=== PATIENT | female | born 1940 | race Caucasian/White ===

== ENCOUNTER → 2017-03-08 | Outpatient (CLI) | payer MEDICARE ==
--- NOTE | 2017-03-08 10:50 | XR ---
EXAMINATION TYPE: XR chest 2V DATE OF EXAM: 03/08/2017 COMPARISON: 11/25/2015 HISTORY: Wheezing. History of prior pneumothorax TECHNIQUE: Frontal and lateral views of the chest are obtained. FINDINGS: Biapical pleural thickening is present, however no pneumothorax is appreciated. Reticular opacities predominating within the right midlung and lower lungs and may relate to chronic interstiti al disease. Tenting of the diaphragm is seen on the right from right basilar atelectasis. There is pu lmonary hyperinflation and tapering of the pulmonary vasculature compatible with underlying COPD. Add itionally on the lateral image there is flattening of the diaphragms. Cardia mediastinal silhouette i s elongated but within normal limits. Vascular prominence is seen centrally may relate to underlying pulmonary arterial hypertension given the finding of COPD. IMPRESSION: 1. No evidence of recurrent pneumothorax. 2. Chronic interstitial changes within the right midlung and lower lungs which may relate to intersti tial lung disease. 3. Right basilar atelectasis. 4. Hilar prominence may relate to underlying pulmonary arterial hypertension given the radiographic f indings of COPD.
== END | disposition home or self-care (01) ==
LOC: RADXRMAIN 10:19
PROVIDERS: ATTEND Family Medicine
DX: J98.11 Atelectasis (principal); J44.9 Chronic obstructive pulmonary disease, unspecified; J84.89 Other specified interstitial pulmonary diseases; I27.2 Other secondary pulmonary hypertension; Z87.09 Personal history of other diseases of the respiratory system
CPT/HCPCS: 71020

== ENCOUNTER → 2017-04-09 | Outpatient (CLI) | payer MEDICARE ==
--- NOTE | 2017-04-10 11:26 | BD ---
EXAMINATION TYPE: MG DEXA axial skeleton. DATE OF EXAM: 04/09/2017 COMPARISON: NONE CLINICAL HISTORY: Height: 64.2 IN Weight: 130 LBS FRAX RISK QUESTIONS: Alcohol (3 or more units per day): NO Family History (Parent hip fracture): NO Glucocorticoids (More than 3mos): NO (Ex: prednisone, prednisolone, methylprednisolone, dexamethasone, and hydrocortisone). History of Fracture in Adulthood: NO Secondary Osteoporosis: 1. Type 1 Diabetes: NO 2. Hyperthyroidism: NO 3. Menopause before 45: NO 4. Malnutrition: NO 5. Chronic liver disease: NO Rheumatoid Arthritis: NO Current Tobacco Use: NO RISK FACTORS HISTORY OF: Active: YES Postmenopausal woman: AGE 51 MEDICATIONS: Additional Medications: VIT D, B12,FLAXSEED OIL EXAM MEASUREMENTS: Bone mineral densitometry was performed using the [employer] System. Bone mineral density as measured about the Lumbar spine is: ----- L1-L4(G/cm2): 1.044 T Score Values are as follows: ----- L2: -1.2 ----- L3: -1.1 ----- L4: -1.3 ----- L1-L4: -1.1 Bone mineral density BASELINE Bone mineral density about the R hip (g/cm2): 0.658 Bone mineral density about the L hip (g/cm2): 0.724 T Score values are as follows: -----R Neck: -2.7 -----L Neck: -2.3 -----R Total: -2.5 -----L Total: -2.4 Bone mineral density BASELINE IMPRESSION: Osteoporosis (T Score less than -2.5) as noted by T Score values at the There is increased fracture risk and therapy is usually indicated based on age. Re-Screen 1-2 years. NOTE: T-SCORE=SD OF THE YOUNG ADULT MEAN.
--- NOTE | 2017-04-10 14:44 | MM ---
Reason for exam: screening (asymptomatic). History: Patient is postmenopausal. Physical Findings: A clinical breast exam by your physician is recommended on an annual basis and results should be correlated with mammographic findings. MG Screening Mammo w CAD Bilateral CC and MLO view(s) were taken. There are scattered fibroglandular densities. Finding #1: There is a typically benign 4 mm oval mass located 3 cm from the nipple in the upper outer quadrant, middle position of the right breast. Finding #2: There are typically benign round, coarse lorene-like, diffuse/scattered calcifications in both breasts. There is no discrete abnormality. ASSESSMENT: Benign, BI-RAD 2 RECOMMENDATION: Routine screening mammogram of both breasts in 1 year.
== END | disposition home or self-care (01) ==
LOC: RADMAMWWP 14:35
PROVIDERS: ATTEND Family Medicine
DX: Z12.31 Encounter for screening mammogram for malignant neoplasm of breast (principal); M81.0 Age-related osteoporosis without current pathological fracture; N95.1 Menopausal and female climacteric states
CPT/HCPCS: 77080; G0202

== ENCOUNTER 2019-10-07 18:26 | Observation (INO) | payer MEDICARE ==
[2019-10-07] MEDS ORDERED: SODIUM CHLORIDE 0.9% 500 ML 500 ML IV STA (18:55)
[2019-10-07 19:24] LABS: Basophils # (A) 0.1 k/uL (0-0.2); Basophils % (A) 1 %; Eosinophils # (A) 0.1 k/uL (0-0.7); Eosinophils % (A) 1 %; HCT 47.5 % (34.0-46.0); HGB 15.2 gm/dL (11.4-16.0); Lymphocytes # (A) 1.4 k/uL (1.0-4.8); Lymphocytes % (A) 22 %; MCH 29.2 pg (25.0-35.0); MCV 91.2 fL (80.0-100.0); Mean Platelet Volume 8.1; Monocytes # (A) 0.4 k/uL (0-1.0); Monocytes % (A) 6 %; Neutrophils # (A) 4.4 k/uL (1.3-7.7); Neutrophils % (A) 68 %; Platelet Count 247 k/uL (150-450); RBC 5.21 m/uL (3.80-5.40); RDW 12.1 % (11.5-15.5); WBC 6.4 k/uL (3.8-10.6)
--- NOTE | 2019-10-07 19:33 | XR ---
EXAMINATION TYPE: XR chest 2V DATE OF EXAM: 10/07/2019 COMPARISON: 03/08/2017 HISTORY: Cough TECHNIQUE: FINDINGS: There is some coarsening of interstitial markings. There is flattening of the diaphragm. He art size is normal. There is no heart failure. Bony thorax is intact. IMPRESSION: COPD and pulmonary fibrosis. Fibrotic changes at the lung bases. Interstitial infiltrates slightly improved at the lung bases compared to last exam.
[2019-10-07 19:34] LABS: Albumin 4.2 g/dL (3.5-5.0); Calcium 9.5 mg/dL (8.4-10.2); Potassium 4.2 mmol/L (3.5-5.1); Total Bilirubin 0.3 mg/dL (0.2-1.3); Total Protein 6.7 g/dL (6.3-8.2)
[2019-10-07 20:45] LABS: Appearance,Urine Clear (Clear); Bacteria,Urine Moderate /hpf; Bilirubin,Urine Negative (Negative); Blood,Urine Negative (Negative); Color,Urine Colorless; Glucose,Urine (UA) Negative (Negative); Ketones,Urine Negative (Negative); Leukocyte Esterase,Urine Trace (Negative); Nitrite,Urine Negative (Negative); PH, Urine 6.5 (5.0-8.0); Protein,Urine Negative (Negative); RBC,Urine 2 /hpf (0-5); Specific Gravity,Urine 1.003 (1.001-1.035); Squamous Epithelial Cell,Urine 1 /hpf (0-4); Urobilinogen,Urine <2.0 mg/dL (<2.0); WBC,Urine 2 /hpf (0-5)
[2019-10-07] MEDS ORDERED: hydrALAZINE HCL 20 MG/ML 1 ML VIAL IVP STA (21:04)
[2019-10-07] MEDS ORDERED: NALOXONE 0.4 MG/ML 1 ML VIAL IV PRN (21:04)
--- NOTE | 2019-10-07 21:07 | ED ---
General Adult HPI - General Chief complaint: Dizziness Stated complaint: lightheaded/High BP Time Seen by Provider: 10/07/19 18:46 Source: patient, RN notes reviewed, old records reviewed Mode of arrival: wheelchair Limitations: no limitations - History of Present Illness Initial comments: 79-year-old female patient presents to ED for chief complaint of hypertension and lightheaded sensation. Patient reports that she has never had high blood pressure before. She takes a blood pressure approximately once a week and is normally less than 140 systolic and 90 diastolic. Patient reports that today approximately 3 PM she began to feel very lightheaded, felt as if she was going to fall or potentially pass out. Patient reports that this lasted approximately 20 minutes. Patient states that she take her blood pressure is elevated at 200 systolic and 100s diastolic. Patient express any pain at this time and evaluation she is asymptomatic. Denies any headaches or changes in vision. The chest pain or shortness of breath. Denies any other complaints. Systemic: Pt denies fatigue, fever/chills, rash. Pt denies weakness, night sweats, weight loss. Neuro: Pt denies headache, visual disturbances, syncope or pre-syncope. HEENT: Pt denies ocular discharge or irritation, otalgia, rhinorrhea, pharyngitis or notable lymphadenopathy. Cardiopulmonary: Pt denies chest pain, SOB, heart palpitations, dyspnea on exertion. Abdominal/GI: Pt denies abdominal pain, n/v/d. : Pt denies dysuria, burning w/ urination, frequency/urgency. Denies new onset urinary or bowel incontinence. MSK: Pt denies myalgia, loss of strength or function in extremities. Neuro: Pt denies new onset weakness, paresthesias. - Related Data Home Medications Medication Instructions Recorded Confirmed Cholecalciferol [Vitamin D3] 1,000 unit PO DAILY 10/31/15 10/31/15 Cyanocobalamin [Vitamin B-12] 500 mcg PO DAILY 10/31/15 10/31/15 Flaxseed [Flaxseed Oil] 1,000 mg PO DAILY 10/31/15 10/31/15 Allergies Allergy/AdvReac Type Severity Reaction Status Date / Time Penicillins Allergy Rash/Hives Verified 10/07/19 18:38 Review of Systems ROS Statement: Those systems with pertinent positive or pertinent negative responses have been documented in the HPI. ROS Other: All systems not noted in ROS Statement are negative. 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 History of Any Multi-Drug Resistant Organisms: None Reported Past Surgical History: No Surgical Hx Reported Additional Past Surgical History / Comment(s): Pt states she has never had surgery Past Anesthesia/Blood Transfusion Reactions: Unable to Obtain Additional Past Anesthesia/Blood Transfusion Reaction / Comment(s): Pt has never had surgery Past Psychological History: No Psychological Hx Reported Smoking Status: Never smoker Past Alcohol Use History: None Reported Past Drug Use History: None Reported - Past Family History Father Family Medical History: COPD, Osteoarthritis (OA) Additional Family Medical History / Comment(s): Father had TB and emphysema. He was a smoker. Mother Family Medical History: Hypertension, Renal Disease (kidney failure) Additional Family Medical History / Comment(s): Mother of gallbladder disease at age 81 yrs. Brother(s) Family Medical History: COPD, Coronary Artery Disease (CAD), Diabetes Mellitus, Hyperlipidemia, Osteoarthritis (OA), Prostate Disorder (Prostate cancer) Sister(s) Family Medical History: Pulmonary Embolus (DVT no pulmonary emboli) General Exam - General Exam Comments Initial Comments: Constitutional: NAD, AOX3, Pt has pleasant affect. HEENT: NC/AT, trachea midline, neck supple, no lymphadenopathy. Posterior pharynx non erythematous, without exudates. External ears appear normal, without discharge. Mucous membranes moist. Eyes PERRLA, EOM intact. There is no scleral icterus. No pallor noted. Cardiopulmonary: RRR, no murmurs, rubs or gallops, no JVD noted. Lungs CTAB in anterior and posterior mccann. No peripheral edema. Abdominal exam: Abdomen soft and non-distended. Abdomen non-tender to palpation in all 4 quadrants. Bowel sounds active in LLQ. No hepatosplenomegaly. No ecchymosis Neuro: CN II-XII intact. No nuchal rigidity. No raccon eyes, no thomas sign, no hemotympanum. No cervical spinal tenderness. NIH 0. MSK: No posterior calf tenderness bilaterally, homans sign negative bilaterally. Posterior tibialis and radial pulse +2 bilaterally. Sensation intact in upper and lower extremities. Full active ROM in upper and lower extremities, 5/5 stregnth. Limitations: no limitations Course Vital Signs 10/07/19 10/07/19 10/07/19 18:35 18:57 20:11 Temperature 98.0 F Pulse Rate 76 69 Pulse Rate [ Left Supine Lead Ingot Molder ] Respiratory 18 20 18 Rate Blood Pressure 192/109 183/107 Blood Pressure [Left Arm Sitting] Blood Pressure [Left Arm Standing] Blood Pressure [Left Arm Supine] O2 Sat by Pulse 98 97 Oximetry 10/07/19 20:38 Temperature Pulse Rate Pulse Rate [ 70 Left Supine Lead Ingot Molder ] Respiratory 18 Rate Blood Pressure Blood Pressure 180/102 [Left Arm Sitting] Blood Pressure 174/105 [Left Arm Standing] Blood Pressure 165/89 [Left Arm Supine] O2 Sat by Pulse Oximetry Medical Decision Making - Medical Decision Making 79-year-old female patient presents to ED for chief complaint of hypertension and lightheaded sensation. Patient reports that she has never had high blood pressure before. She takes a blood pressure approximately once a week and is normally less than 140 systolic and 90 diastolic. Patient reports that today approximately 3 PM she began to feel very lightheaded, felt as if she was going to fall or potentially pass out. Patient reports that this lasted approximately 20 minutes. Patient states that she take her blood pressure is elevated at 200 systolic and 100s diastolic. Patient express any pain at this time and evaluation she is asymptomatic. Denies any headaches or changes in vision. The chest pain or shortness of breath. Denies any other complaints. Patient vital signs displayed hypertension, improving without intervention. Physical exam did not display acute pathology. Neurologic exam is intact NIH is 0. Laboratory investigations are intact and are non-impressive. EKG is nonischemic. Patient continues to deny any headaches or changes in vision. Is not on any blood thinners. During orthostatic blood pressures patient again became very symptomatic, although she is not a fall or possibly pass out. Patient be admitted for further evaluation. Case discussed in depth with Dr. Benson. - Lab Data Result diagrams: 10/07/19 18:55 10/07/19 18:55 Lab Results 10/07/19 10/07/19 10/07/19 Range/Units 18:55 18:55 18:55 WBC 6.4 (3.8-10.6) k/uL RBC 5.21 (3.80-5.40) m/uL Hgb 15.2 (11.4-16.0) gm/dL Hct 47.5 H (34.0-46.0) % MCV 91.2 (80.0-100.0) fL MCH 29.2 (25.0-35.0) pg MCHC 32.0 (31.0-37.0) g/dL RDW 12.1 (11.5-15.5) % Plt Count 247 (150-450) k/uL Neutrophils % 68 % Lymphocytes % 22 % Monocytes % 6 % Eosinophils % 1 % Basophils % 1 % Neutrophils # 4.4 (1.3-7.7) k/uL Lymphocytes # 1.4 (1.0-4.8) k/uL Monocytes # 0.4 (0-1.0) k/uL Eosinophils # 0.1 (0-0.7) k/uL Basophils # 0.1 (0-0.2) k/uL Sodium 134 L (137-145) mmol/L Potassium 4.2 (3.5-5.1) mmol/L Chloride 99 (98-107) mmol/L Carbon Dioxide 29 (22-30) mmol/L Anion Gap 6 mmol/L BUN 16 (7-17) mg/dL Creatinine 1.00 (0.52-1.04) mg/dL Est GFR (CKD-EPI)AfAm 62 (>60 ml/min/1.73 sqM) Est GFR (CKD-EPI)NonAf 53 (>60 ml/min/1.73 sqM) Glucose 94 (74-99) mg/dL Calcium 9.5 (8.4-10.2) mg/dL Total Bilirubin 0.3 (0.2-1.3) mg/dL AST 23 (14-36) U/L ALT 13 (4-34) U/L Alkaline Phosphatase 79 (38-126) U/L Troponin I <0.012 (0.000-0.034) ng/mL Total Protein 6.7 (6.3-8.2) g/dL Albumin 4.2 (3.5-5.0) g/dL Urine Color Urine Appearance (Clear) Urine pH (5.0-8.0) Ur Specific [place] (1.001-1.035) Urine Protein (Negative) Urine Glucose (UA) (Negative) Urine Ketones (Negative) Urine Blood (Negative) Urine Nitrite (Negative) Urine Bilirubin (Negative) Urine Urobilinogen (<2.0) mg/dL Ur Leukocyte Esterase (Negative) Urine RBC (0-5) /hpf Urine WBC (0-5) /hpf Ur Squamous Epith Cells (0-4) /hpf Urine Bacteria (None) /hpf 10/07/19 Range/Units 20:20 WBC (3.8-10.6) k/uL RBC (3.80-5.40) m/uL Hgb (11.4-16.0) gm/dL Hct (34.0-46.0) % MCV (80.0-100.0) fL MCH (25.0-35.0) pg MCHC (31.0-37.0) g/dL RDW (11.5-15.5) % Plt Count (150-450) k/uL Neutrophils % % Lymphocytes % % Monocytes % % Eosinophils % % Basophils % % Neutrophils # (1.3-7.7) k/uL Lymphocytes # (1.0-4.8) k/uL Monocytes # (0-1.0) k/uL Eosinophils # (0-0.7) k/uL Basophils # (0-0.2) k/uL Sodium (137-145) mmol/L Potassium (3.5-5.1) mmol/L Chloride (98-107) mmol/L Carbon Dioxide (22-30) mmol/L Anion Gap mmol/L BUN (7-17) mg/dL Creatinine (0.52-1.04) mg/dL Est GFR (CKD-EPI)AfAm (>60 ml/min/1.73 sqM) Est GFR (CKD-EPI)NonAf (>60 ml/min/1.73 sqM) Glucose (74-99) mg/dL Calcium (8.4-10.2) mg/dL Total Bilirubin (0.2-1.3) mg/dL AST (14-36) U/L ALT (4-34) U/L Alkaline Phosphatase (38-126) U/L Troponin I (0.000-0.034) ng/mL Total Protein (6.3-8.2) g/dL Albumin (3.5-5.0) g/dL Urine Color Colorless Urine Appearance Clear (Clear) Urine pH 6.5 (5.0-8.0) Ur Specific [place] 1.003 (1.001-1.035) Urine Protein Negative (Negative) Urine Glucose (UA) Negative (Negative) Urine Ketones Negative (Negative) Urine Blood Negative (Negative) Urine Nitrite Negative (Negative) Urine Bilirubin Negative (Negative) Urine Urobilinogen <2.0 (<2.0) mg/dL Ur Leukocyte Esterase Trace H (Negative) Urine RBC 2 (0-5) /hpf Urine WBC 2 (0-5) /hpf Ur Squamous Epith Cells 1 (0-4) /hpf Urine Bacteria Moderate H (None) /hpf - EKG Data -: EKG Interpreted by Me (and Dr. Benson ) EKG Comments: Ventricular rate 81,. And for 172, QRS 84, QT/QTc [id number]. Normal sinus rhythm, normal EKG, no concern for acute ischemia. Disposition Clinical Impression: Pre-syncope Disposition: ADMITTED IP TO THIS HOSP Condition: Serious Is patient prescribed a controlled substance at d/c from ED?: No Referrals: None,Stated [Primary Care Provider] - 1-2 days
--- NOTE | 2019-10-07 21:31 | CT ---
EXAMINATION TYPE: CT brain wo con DATE OF EXAM: 10/07/2019 COMPARISON: None HISTORY: Hypertension and lightheadedness. CT DLP: 1084.4 mGycm Automated exposure control for dose reduction was used. Multiple axial sections were obtained of the brain without contrast. There is cerebral cortical atrophy. There is no mass effect nor midline shift. There is no sign of in tracranial hemorrhage. The calvarium is intact. IMPRESSION: Mild atrophy. No acute intracranial abnormality.
[2019-10-07] MEDS: SODIUM CHLORIDE 0.9% 1,000 ML IV SCH (21:53)
[2019-10-08] MEDS: LISINOPRIL 5 MG TAB PO SCH (10:41)
[2019-10-08] MEDS: ACETAMINOPHEN TAB 325 MG TAB PO PRN ×2 (10:41→21:33)
[2019-10-08] MEDS: ASPIRIN 81 MG PO SCH (10:41)
[2019-10-08] MEDS: SODIUM CHLORIDE 0.9% 1,000 ML IV SCH (11:31)
--- NOTE | 2019-10-08 12:27 | US ---
EXAMINATION TYPE: US carotid duplex BILAT DATE OF EXAM: 10/08/2019 COMPARISON: NONE CLINICAL HISTORY: 79-year-old female near syncope. Technique: Carotid duplex ultrasound examination. Indirect Doppler criteria was utilized. FINDINGS: EXAM MEASUREMENTS: RIGHT: Peak Systolic Velocity (PSV) cm/sec ----- Right CCA: 63.6 ----- Right ICA: 96.2 ----- Right ECA: 94.1 ICA/CCA ratio: 1.5 RIGHT: End Diastole cm/sec ----- Right CCA: 14.2 ----- Right ICA: 23.5 ----- Right ECA: 0.0 LEFT: Peak Systolic Velocity (PSV) cm/sec ----- Left CCA: 61.1 ----- Left ICA: 83.5 ----- Left ECA: 0.0 ICA/CCA ratio: 1.4 LEFT: End Diastole cm/sec ----- Left CCA: 9.5 ----- Left ICA: 19.7 ----- Left ECA: 0.0 VERTEBRALS (direction of flow): Right Vertebral: Antegrade Left Vertebral: Antegrade Rhythm: Arrhythmia Mild atherosclerotic change at the bifurcations. No significant velocity elevations. IMPRESSION: 1. No hemodynamically significant stenosis identified within either internal carotid artery. 2. The technology notes arrhythmia during the exam. Clinically correlate. Criteria for Assigning % of Stenosis / Diameter reduction (Estimation based on the indirect measurements of the internal carotid artery velocities (ICA PSV). 1. Normal (no stenosis)=ICA PSV < 125 cm/s: ratio < 2.0: ICA EDV<40 cm/s. 2. Less than 50% stenosis=ICA PSV < 125 cm/s: ratio < 2.0: ICA EDV<40 cm/s. 3. 50 to 69% stenosis=ICA PSV of 125 to 230 cm/s: ration 2.0 ? 4.0: ICA EDV 40-100 cm/s. 4. Greater than 70% stenosis to near occlusion= ICA PSV > 230 cm/s: ratio > 4.0: ICA EDV > 100 cm/s. 5. Near occlusion= ICA PSV velocities may be low or undetectable: variable ratio and ICA EDV. 6. Total occlusion=unable to detect flow.
[2019-10-08 12:43] LABS: T4, Free (Free Thyroxine) 1.26 ng/dL (0.78-2.19)
--- NOTE | 2019-10-08 12:45 | P.HPIM ---
History of Present Illness H&P Date: 10/08/19 Chief Complaint: near syncope This is an 79-year-old female patient of Dr. Gordon but she has not followed up for greater than 1 year. She has a past medical history of admission for sepsis, right lower lobe pneumonia and acute hypoxic respiratory failure in 2016, history of gastroesophageal reflux disease, Raynaud's. Patient states that she has not seen any physician on a regular basis. Patient gives history of having episodes where she was walking at home and felt lightheaded and going to pass out. She denies waking up feeling lightheaded or dizzy. Mikayla ent states that she sat down and she was doing some deep breathing and then checked her blood pressure and it was 219/106. She has been checking her blood pressure and it has been normal. She denies having any pain at the time. It was seemed to be a sudden onset. She is actually had 3 episodes the second one happened while she was at [employer] and 2 ladies were walking beside her. During these episodes, patient denies having any chest pain. At that time and her blood pressure was not checked. She complains of a headache with sinus pain. No occipital headache. She states she occasionally has loss of balance due to neuropathy and she sometimes leans toward the right side. She denies any recent falls and no history of TIA or strokes.. She has had some workup in the past for neuropathy but unknown cause. She states her legs feel tired and she gets cramps in her legs as well. She is complaining of some gastric reflux and bloating. Patient does not recall having carotid ultrasound and echocardiogram. During her hospitalization in 2016, echocardiogram revealed mild concentric le ft ventricular hypertrophy, EF 5560 percent, large pleural effusion, mild mitral regurgitation, moderate tricuspid regurgitation, mild aortic valve sclerosis without stenosis, moderate pulmonary hypertension. Patient relates that she has had a lot of stress over the past year, her , one son and one grandson in the past year. Patient came into [facility] emergency center for evaluation. Patient was afebrile, initial blood pressure 192/109, heart rate 76, pulse ox 90% on room air. Orthostatic vital signs were negative. NIH score 0. CBC unremarkable, sodium 134, electrolytes, renal function normal. Troponins negative, liver function tests normal. Urinalysis clear, nitrate negative leukoesterase trace, bacteria moderate. EKG was a normal sinus rhythm with rate of [address] changes. CAT scan of the brain showed mild atrophy. No acute intracranial abnormality. Chest x-ray shows COPD and pulmonary fibrosis. Fibrotic changes at the lung basis. Interstitial infiltrates slightly improved at lung bases. Patient placed on the cardiac stepdown unit, carotid ultrasound, echocardiogram, MRI of the brain ordered. No neurology coverage available at this time. Review of Systems Constitutional: Denies anorexia, Denies chills, Denies fatigue, Denies fever, Denies lethargy, Denies malaise, Denies poor appetite, Denies weakness Eyes: denies blurred vision, denies pain Ears, nose, mouth and throat: Reports vertigo, Denies dysphagia, Denies headache, Denies nasal congestion, Denies nasal discharge, Denies sore throat Cardiovascular: Reports lightheadedness, Denies chest pain, Denies decreased exercise tolerance, Denies dyspnea on exertion, Denies shortness of breath, Denies syncope Gastrointestinal: Reports bloating, Reports dyspepsia, Denies abdominal pain, Denies loss of appetite, Denies nausea, Denies vomiting Genitourinary: Denies dysuria, Denies hematuria, Denies urgency, Denies urinary frequency Menstruation: Reports postmenopausal Musculoskeletal: Reports gait dysfunction, Denies frequent falls, Denies muscle weakness, Denies myalgias Integumentary: Denies pruritus, Denies rash, Denies wounds Neurological: Reports headaches, Denies change in mentation, Denies change in speech, Denies seizures Psychiatric: Denies anxiety, Denies depression Endocrine: Denies fatigue, Denies weight change Past Medical History Past Medical History: Mitral Valve Prolapse (MVP), Pneumonia Additional Past Medical History / Comment(s): History of gallbladder problems, MVP yrs ago but pt states no longer a problem, 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 History of Any Multi-Drug Resistant Organisms: None Reported Past Surgical History: No Surgical Hx Reported Additional Past Surgical History / Comment(s): Pt states she has never had surgery Past Anesthesia/Blood Transfusion Reactions: No Reported Reaction Additional Past Anesthesia/Blood Transfusion Reaction / Comment(s): Pt has never had surgery Past Psychological History: No Psychological Hx Reported Smoking Status: Never smoker Past Alcohol Use History: None Reported Additional Past Alcohol Use History / Comment(s): Patient is a lifelong nonsmoker but has had significant secondhand smoke exposure as a child and throughout adulthood. No illicit drug use, no alcohol use. Past Drug Use History: None Reported - Past Family History Father Family Medical History: COPD, Osteoarthritis (OA) Additional Family Medical History / Comment(s): Father at age 81 with TB and emphysema. He was a smoker. Mother Family Medical History: Hypertension, Renal Disease Additional Family Medical History / Comment(s): Mother of gallbladder disease at age 81 yrs. Also had renal failure. Brother(s) Family Medical History: Coronary Artery Disease (CAD), Diabetes Mellitus, Hyperlipidemia, Myocardial Infarction (GA), Prostate Disorder Additional Family Medical History / Comment(s): Patient has 2 brothers one with history of coronary artery disease status post CABG and diabetes. One brother has history of prostate cancer with exposure to agent orange. Sister(s) Family Medical History: Pulmonary Embolus (DVT no pulmonary emboli) Additional Family Medical History / Comment(s): Patient has one sister with multiple medical problems. One sister with history of DVT, sciatica, smoking history. Son(s) Additional Family Medical History / Comment(s): The patient has 4 sons 1 has from pancreatic cancer. One has history of prostate cancer stage IV in remission. He also has history of hypertension, obesity and smoking history. Other 2 sons have no major medical problems. Medications and Allergies Home Medications Medication Instructions Recorded Confirmed Type Aspirin 325 mg PO ONCE PRN 10/07/19 10/07/19 History Biotin(Unknown Dose) 1 tab PO DAILY 10/07/19 10/07/19 History Calcium/Magnesium/Zinc 1 tab PO DAILY 10/07/19 10/07/19 History [Lkonivy-Bnodmtolf-Rhja Tablet] Allergies Allergy/AdvReac Type Severity Reaction Status Date / Time Penicillins Allergy Rash/Hives Verified 10/07/19 21:21 Physical Exam Vitals: Vital Signs Temp Pulse Pulse Pulse Resp BP BP 10/08/19 08:00 97.7 F 77 16 10/08/19 03:12 73 16 10/08/19 03:06 97.9 F 73 16 10/08/19 00:00 71 16 10/07/19 23:41 98.2 F 71 16 10/07/19 22:12 73 18 152/75 10/07/19 21:30 97.9 F 71 16 166/90 10/07/19 20:38 70 18 180/102 10/07/19 20:11 69 18 183/107 10/07/19 18:57 20 10/07/19 18:35 98.0 F 76 18 192/109 BP BP BP Pulse Ox 10/08/19 08:00 168/79 98 10/08/19 03:12 10/08/19 03:06 139/71 97 10/08/19 00:00 10/07/19 23:41 145/69 99 10/07/19 22:12 10/07/19 21:30 98 10/07/19 20:38 174/105 165/89 10/07/19 20:11 97 10/07/19 18:57 10/07/19 18:35 98 Intake and Output 10/07/19 10/08/19 10/08/19 22:59 06:59 14:59 Intake Total 0 Balance 0 Intake: Oral 0 Other: Voiding Method Toilet # Voids 1 1 # Bowel Movements 0 Weight 53.977 kg 52.9 kg Gen: This is an 79-year-old female. Patient is resting in a chair and appears to be comfortable and in no acute distress. HEENT: Head is atraumatic, normocephalic. Pupils equal, round. Sclerae is anicteric. NECK: Supple. No JVD. No lymphadenopathy. No thyromegaly. No carotid bruit. LUNGS: Clear to auscultation. No wheezes or rhonchi. No intercostal retractions. HEART: Regular rate and rhythm. No murmur. ABDOMEN: Soft. Bowel sounds are present. No masses. No tenderness. EXTREMITIES: No pedal edema. No calf tenderness. Dorsalis pedis +2 bilaterally. Patient does have dusky changes to her distal feet in dependent position, hammertoes bilaterally. Upper extremity strength 5 out of 5, lower extremities strength 5 out of 5. Normal finger to nose, normal nida-hx-onni, no tremors. NEUROLOGICAL: Patient is awake, alert and oriented x3. Cranial nerves 2 through 12 are grossly intact. Results CBC & Chem 7: 10/07/19 18:55 10/07/19 18:55 Labs: Abnormal Lab Results - Last 24 Hours (Table) 0310/07/19 10/07/19 Range/Units 18:55 18:55 20:20 Hct 47.5 H (34.0-46.0) % Sodium 134 L (137-145) mmol/L Ur Leukocyte Esterase Trace H (Negative) Urine Bacteria Moderate H (None) /hpf Thrombosis Risk Factor Assmnt - DVT/VTE Prophylaxis DVT/VTE Prophylaxis: Pharmacologic Prophylaxis ordered - Choose All That Apply Any of the Below Risk Factors Present?: No Other Risk Factors: Yes Each Risk Factor Represents 3 Points: Family history of DVT/PE, History of DVT/PE Other congenital or acquired thrombophilia - If yes, enter type in comment: No Thrombosis Risk Factor Assessment Total Risk Factor Score: 6 Thrombosis Risk Factor Assessment Level: High Risk Assessment and Plan Plan: 1. Lightheadedness, near syncope episodes 3 of unclear etiology. Carotid ultrasound, echocardiogram, MRI of the brain ordered. Patient will need further workup as an outpatient. And lambda light chain, protein electrophoresis, ADIA, rheumatoid factor, TSH, vitamin B12 level, folate level. Lipid panel ordered. PT and OT added. Continue cardiac monitoring to rule out arrhythmia. Aspirin 81 mg daily started. 2. Peripheral neuropathy of unclear etiology. Patient will need further workup as an outpatient. 3. Hypertensive emergency. Patient will be started on lisinopril 5 mg daily, monitor blood pressure closely. 4. History of Raynaud's, stable. 5. Gastroesophageal reflux disease and GI prophylaxis. Protonix daily. 6. DVT prophylaxis. Heparin subcu. 7. Headache most likely a sinus type headache. Tylenol added. CODE STATUS: DO NOT INTUBATE Patient will be admitted to the hospital for a minimum of 2 night stay. Discharge plan: Most likely return home. PT and OT ordered. Impression and plan of care have been directed as dictated by the signing physician. Padmini Headley nurse practitioner acting as scribe for signing physician.
--- NOTE | 2019-10-08 16:19 | MR ---
EXAMINATION TYPE: MR brain wo/w con DATE OF EXAM: 10/08/2019 COMPARISON: Prior CT brain from yesterday. HISTORY: syncope. History of hypertension and lightheadedness. TECHNIQUE: Multiplanar, multisequence images of the brain and brainstem is performed without and with IV contras t, utilizing 5 mL intravenous Gadavist . FINDINGS: Diffusion weighted images demonstrate no evidence of a recent infarct or other diffusion ab normality. There is no worrisome extra-axial fluid collection. There is mild ventricular and sulcal prominence identified. Some foci of T2 hyperintensity in the periventricular white matter are seen. Midline structures demonstrate normal morphology. The craniocervical junction appears within normal limits. Post contrast images demonstrate no abnormal enhancement. The dural venous sinuses appear p atent. The visualized sinuses are clear and the globes are intact. No suspicious fluid signal bilater al mastoid air cells. IMPRESSION: No evidence of a recent infarct. Mild diffuse age-related cerebral atrophy and chronic sm all vessel ischemic change is felt present. No suspicious enhancement noted.
[2019-10-08 16:46] LABS: Protein, Total 5.4 g/dL (6.2-8.2)
[2019-10-08 17:12] LABS: Hemoglobin A1C 5.4 % (4.0-6.0)
--- NOTE | 2019-10-08 17:57 | ECHOF ---
Referral Reason:LVF MEASUREMENTS -------- HEIGHT: 165.1 cm WEIGHT: 52.6 kg BP: 168/79 RVIDd: 3.4 cm (< 3.3) IVSd: 1.1 cm (0.6 - 1.1) LVIDd: 2.8 cm (3.9 - 5.3) LVPWd: 1.2 cm (0.6 - 1.1) IVSs: 1.5 cm LVIDs: 1.9 cm LVPWs: 1.3 cm LAESV Index (A-L): 26.03 ml/m Ao Diam: 3.0 cm (2.0 - 3.7) AV Cusp: 1.8 cm (1.5 - 2.6) MV EXCURSION: 11.243 mm (> 18.000) MV EF SLOPE: 50 mm/s (70 - 150) EPSS: 0.6 cm MV E Eduard: 0.87 m/s MV DecT: 265 ms MV A Eduard: 0.91 m/s MV E/A Ratio: 0.95 RAP: 5.00 mmHg RVSP: 34.06 mmHg FINDINGS -------- Sinus rhythm. This was a technically good study. The left ventricular size is normal. There is borderline concentric left ventricular hypertrophy. Overall left ventricular systolic function is normal with, an EF between 55 - 60 %. The diastolic filling pattern is normal for the age of the patient 13.70. The right ventricle is mildly enlarged. Normal LA size by volume 22+/-6 ml/m2. The right atrium is mildly enlarged. Interatrial and interventricular septum intact. The aortic valve was not well visualized. There is no evidence of aortic regurgitation. There is no evidence of aortic stenosis. Mild mitral regurgitation is present. Mild tricuspid regurgitation present. There is mild pulmonary hypertension. The right ventricular systolic pressure, as measured by Doppler, is 34.06mmHg. Trace/mild (physiologic) pulmonic regurgitation. The aortic root size is normal. Normal inferior vena cava with normal inspiratory collapse consistent with estimated right atrial pre ssure of 5 mmHg. There is no pericardial effusion. CONCLUSIONS -------- 1. Sinus rhythm. 2. This was a technically good study. 3. The left ventricular size is normal. 4. There is borderline concentric left ventricular hypertrophy. 5. Overall left ventricular systolic function is normal with, an EF between 55 - 60 %. 6. The diastolic filling pattern is normal for the age of the patient 13.70 7. The right ventricle is mildly enlarged. 8. Normal LA size by volume 22+/-6 ml/m2. 9. The right atrium is mildly enlarged. 10. Interatrial and interventricular septum intact. 11. The aortic valve was not well visualized. 12. There is no evidence of aortic regurgitation. 13. There is no evidence of aortic stenosis. 14. Mild mitral regurgitation is present. 15. Mild tricuspid regurgitation present. 16. There is mild pulmonary hypertension. 17. The right ventricular systolic pressure, as measured by Doppler, is 34.06mmHg. 18. Trace/mild (physiologic) pulmonic regurgitation. 19. The aortic root size is normal. 20. Normal inferior vena cava with normal inspiratory collapse consistent with estimated right atrial pressure of 5 mmHg. 21. There is no pericardial effusion. FORGING OPERATOR: Marbella Torres RDCS
[2019-10-08 20:33] VITALS: RESP 18
[2019-10-09] MEDS: SODIUM CHLORIDE 0.9% 1,000 ML IV SCH (01:51)
[2019-10-09 03:12] LABS: Cholesterol 216 mg/dL (<200); HDL Cholesterol 100 mg/dL (40-60); LDL Cholesterol,Calculated 101 mg/dL (0-99); Triglycerides 74 mg/dL (<150)
[2019-10-09] MEDS: ACETAMINOPHEN TAB 325 MG TAB PO PRN (04:21)
[2019-10-09 09:05] VITALS: BP 140/73; PULSE 72; TEMP 98.3
[2019-10-09] MEDS: LISINOPRIL 5 MG TAB PO SCH (09:05)
[2019-10-09] MEDS: ASPIRIN 81 MG PO SCH (09:06)
[2019-10-09 09:44] LABS: Free Kappa Lt Chain Qnt, Serum 1.09 mg/dL (0.33-1.94)
[2019-10-09 13:01] LABS: Albumin 3.45 g/dL (3.80-4.90); Gamma Globulin 0.5 g/dL (0.70-1.50)
--- NOTE | 2019-10-09 15:17 | P.DS ---
Providers Date of admission: 10/07/19 21:57 Expected date of discharge: 10/09/19 Attending physician: Courtney Escobar Primary care physician: Stated None Hospital Course: This is an 79-year-old female patient of Dr. Gordon but she has not followed up for greater than 1 year. She has a past medical history of admission for sepsis, right lower lobe pneumonia and acute hypoxic respiratory failure in 2016, history of gastroesophageal reflux disease, Raynaud's. Patient states that she has not seen any physician on a regular basis. Patient gives history of having episodes where she was walking at home and felt lightheaded and going to pass out. She denies waking up feeling lightheaded or dizzy. Patient states that she sat down and she was doing some deep breathing and then checked her blood pressure and it was 219/106. She has been checking her blood pressure and it has been normal. She denies having any pain at the time. It was seemed to be a sudden onset. She is actually had 3 episodes the second one happened while she was at [employer] and 2 ladies were walking beside her. During these episodes, patient denies having any chest pain. At that time and her blood pressure was not checked. She complains of a headache with sinus pain. No occipital headache. She states she occasionally has loss of balance due to neuropathy and she sometimes leans toward the right side. She denies any recent falls and no history of TIA or strokes.. She has had some workup in the past for neuropathy but unknown cause. She states her legs feel tired and she gets cramps in her legs as well. She is complaining of some gastric reflux and bloating. Patient does not recall having carotid ultrasound and echocardiogram. During her hospitalization in 2016, echocardiogram revealed mild concentric left ventricular hypertrophy, EF 5560 percent, large pleural effusion, mild mitral regurgitation, moderate tricuspid regurgitation, mild aortic valve sclerosis without stenosis, moderate pulmonary hypertension. Patient relates t hat she has had a lot of stress over the past year, her , one son and one grandson in the past year. Patient came into [facility] emergency center for evaluation. Patient was afebrile, initial blood pressure 192/109, heart rate 76, pulse ox 90% on room air. Orthostatic vital signs were negative. NIH score 0. CBC unremarkable, sodium 134, electrolytes, renal function normal. Troponins negative, liver function tests normal. Urinalysis clear, nitrate negative leukoesterase trace, bacteria moderate. EKG was a normal sinus rhythm with rate of [address] changes. CAT scan of the brain showed mild atrophy. No acute intracranial abnormality. Chest x-ray shows COPD and pulmonary fibrosis. Fibrotic changes at the lung basis. Interstitial infiltrates slightly improved at lung bases. Patient placed on the cardiac stepdown unit, carotid ultrasound, echocardiogram, MRI of the brain ordered. No neurology coverage available at this time. 10/08: Patient has had no further episodes of lightheadedness or dizziness, she denies having any chest pain or shortness of breath. Carotid ultrasound showed no hemodynamically significant stenosis. Echocardiogram reveals EF 55-60% mild mitral regurgitation, mild tricuspid regurgitation, mild pulmonary hypertension. MRI of the brain showed no evidence of recent infarct. Mild diffuse age-related cerebral atrophy and chronic small vessel ischemic change. Patient has been evaluated by physical therapy and deemed completely independent. No home care needs identified. Patient will be discharged home today in stable condition. Discharge diagnoses: 1. Lightheadedness, near syncope episodes 3 of unclear etiology. Possible vasovagal, possibly related to hypertension uncontrolled. 2. Peripheral neuropathy of unclear etiology. Patient will need further workup as an outpatient. 3. Hypertensive emergency. 4. History of Raynaud's, stable. 5. Gastroesophageal reflux disease. 6. Headache most likely a sinus type headache. Discharge plan: home Impression and plan of care have been directed as dictated by the signing physician. Padmini Headley nurse practitioner acting as scribe for signing physician. Patient Condition at Discharge: Stable Plan - Discharge Summary Discharge Rx Participant: Yes New Discharge Prescriptions: New Aspirin 81 mg PO DAILY chew Lisinopril [Zestril] 5 mg PO DAILY #30 tab Sertraline HCl [Zoloft] 25 mg PO HS #30 tab Continue Calcium/Magnesium/Zinc [Jvniooe-Csldzqxhc-Jeji Tablet] 1 tab PO DAILY Biotin(Unknown Dose) 1 tab PO DAILY Discontinued Aspirin 325 mg PO ONCE PRN PRN Reason: LIGHT HEADED Discharge Medication List Biotin(Unknown Dose) 1 tab PO DAILY 10/07/19 [History] Calcium/Magnesium/Zinc [Ghfswtl-Oraqnnjou-Qpbh Tablet] 1 tab PO DAILY 10/07/19 [History] Aspirin 81 mg PO DAILY chew 10/09/19 [Rx] Lisinopril [Zestril] 5 mg PO DAILY #30 tab 10/09/19 [Rx] Sertraline HCl [Zoloft] 25 mg PO HS #30 tab 10/09/19 [Rx] Follow up Appointment(s)/Referral(s): None,Stated [Primary Care Provider] - 1-2 days Patient Instructions/Handouts: DASH Eating Plan (DC), Hypertension (DC) Activity/Diet/Wound Care/Special Instructions: Please check your blood pressure twice daily at home, keep a log and bring to your follow up appointment. Discharge Disposition: HOME SELF-CARE
== END 2019-10-09 12:55 | disposition home or self-care (01) ==
LOC: EC 18:26 → 3SCARD 21:57
PROVIDERS: ADMIT Internal Medicine; ATTEND Internal Medicine
DX: R55 Syncope and collapse (principal); I16.1 Hypertensive emergency; I10 Essential (primary) hypertension; R51 Headache; G62.9 Polyneuropathy, unspecified; I08.3 Combined rheumatic disorders of mitral, aortic and tricuspid valves; I27.20 Pulmonary hypertension, unspecified; J90 Pleural effusion, not elsewhere classified; Z77.22 Contact with and (suspected) exposure to environmental tobacco smoke (acute) (chronic); I73.00 Raynaud's syndrome without gangrene; J44.9 Chronic obstructive pulmonary disease, unspecified; J84.10 Pulmonary fibrosis, unspecified; G31.9 Degenerative disease of nervous system, unspecified; I67.82 Cerebral ischemia; Z79.82 Long term (current) use of aspirin; Z79.899 Other long term (current) drug therapy; Z88.0 Allergy status to penicillin; Z82.5 Family history of asthma and other chronic lower respiratory diseases; Z82.61 Family history of arthritis; Z83.3 Family history of diabetes mellitus; Z80.42 Family history of malignant neoplasm of prostate; Z83.438 Family history of other disorder of lipoprotein metabolism and other lipidemia; Z84.1 Family history of disorders of kidney and ureter; Z82.49 Family history of ischemic heart disease and other diseases of the circulatory system; Z80.0 Family history of malignant neoplasm of digestive organs; Z83.1 Family history of other infectious and parasitic diseases
CPT/HCPCS: 96361 ×2; 96374; 99285; 36415; 93005; 93306; 97161; 84439; 82747; 80061; 80053; 84443; 82607; 84484; 85025; 86431; 81001; 84165; 86038; 83883; 83036; 71046; 93880; 70450; 70553; G0378 ×3; J0360; A9585

== ENCOUNTER → 2022-09-03 | Outpatient (CLI) | payer MEDICARE ==
--- NOTE | 2022-09-03 13:18 | CT ---
EXAMINATION TYPE: CT chest wo con DATE OF EXAM: 09/03/2022 COMPARISON: 11/18/1959 HISTORY: Interstitial lung disease. CT DLP: 371 mGycm. Automated Exposure Control for Dose Reduction was Utilized. TECHNIQUE: CT scan of the thorax is performed without IV contrast. FINDINGS: LUNGS: The right upper lobe on axial image 151 there is a 3 mm pulmonary nodule. There is moderate ce ntral basilar bronchiectasis. There are number of mucous filled distal bronchi in right lower lobe an d left lower lobe. There is a 6 mm subpleural nodule axial image 260 left lower lobe. Right upper lob e subpleural nodule measuring 1 to 2 mm axial images 160. In the left lower lobe there is a more nodu lar 1.2 cm density subpleural location axial image 281. Calcified granuloma 3mm right upper lobe. There is apical pleural thickening. No pneumothorax or focal pneumonia. Subsegmental areas of consolidation are now more typical scarring or atelectasis right lower lobe.. MEDIASTINUM: Lack of IV contrast is noted to limit evaluation for mediastinal and especially hilar ad enopathy. There are no definitive greater than 1 cm hilar or mediastinal lymph nodes. No cardiomega ly. Small pericardial effusion is seen. OTHER: Hypertrophic changes of the spine. There is a nonspecific calcification on the liver possibly related to granuloma. Atherosclerotic change aorta. IMPRESSION: 1 COPD with no diagnostic evidence of chronic interstitial pulmonary process. There is extensive evid ence of bronchiectasis with greatest involvement centrally and within the lower lobes. Some of the di stal bronchi are mucus filled. 2. Bilateral pulmonary nodules too small to characterize largest within the left lower lobe measuring 6 mm. Recommend 6 month follow-up CT scan to confirm stability. 3. There is a more rounded subpleural nodule measuring 1.2 cm and the left lower lobe adjacent to dil ated bronchi. Recommend dedicated standard CT of the chest with contrast
== END | disposition home or self-care (01) ==
LOC: RADCTMAIN 11:48
PROVIDERS: ATTEND Internal Medicine
DX: J84.9 Interstitial pulmonary disease, unspecified (principal); J44.9 Chronic obstructive pulmonary disease, unspecified; R91.8 Other nonspecific abnormal finding of lung field
CPT/HCPCS: 71250

== ENCOUNTER → 2023-03-18 | Outpatient (CLI) | payer MEDICARE ==
[2023-03-18 11:42] LABS: African American GFR (CKD) 51 (>60 ml/min/1.73 sqM); Blood Urea Nitrogen 18 mg/dL (7-17); Non-African American GFR(CKD) 45 (>60 ml/min/1.73 sqM)
--- NOTE | 2023-03-18 12:22 | CT ---
EXAMINATION TYPE: CT chest w con DATE OF EXAM: 03/18/2023 COMPARISON: 09/03/2022 HISTORY: nodules CT DLP: 117.9 mGycm Automated exposure control for dose reduction was used. TECHNIQUE: CT scan of the chest is performed with IV Contrast, patient injected with 80cc mL of Isovue 300. MIP Images are created on CT scanner and reviewed. 3D reconstructed images are created on an independent workstation and reviewed. FINDINGS: LUNGS: There is some scattered tree-in-bud areas of nodularity with bronchial wall thickening and are as of mucus plugging within the right lower lobe and right middle lobe which are not significantly ch anged since the previous examination. Scattered bronchiectasis and mucous plugging is also seen withi n the left lung which is unchanged since the previous examination. No significant intraparenchymal pu lmonary nodules are otherwise noted on the scope of this examination that do not appear to be associa ronny with bronchiectasis and mucous plugging. MEDIASTINUM: There are no greater than 1 cm hilar or mediastinal lymph nodes. No pericardial effusi on is seen. OTHER: No additional significant abnormality is seen. IMPRESSION: 1. Scattered areas of bronchiectasis and mucous plugging seen diffusely throughout the lungs bilatera lly is compatible with a chronic process. Some areas of tree in bud nodularity which likely relates t o an inflammatory or atypical chest process. There is six-month follow-up. 2. No definitive solid pulmonary nodules are clearly identified that are not associated with areas of mucus plugging on the scope of this examination.
== END | disposition home or self-care (01) ==
LOC: RADCTMAIN 10:50
PROVIDERS: ATTEND Internal Medicine
DX: J47.9 Bronchiectasis, uncomplicated (principal); R91.8 Other nonspecific abnormal finding of lung field
CPT/HCPCS: 82565; 84520; 71260; 36415; Q9967

== ENCOUNTER 2023-06-11 07:36 | Inpatient (IN) | payer MEDICARE ==
--- NOTE | 2023-06-11 08:47 | ED ---
General Adult HPI - General Chief complaint: Weakness Stated complaint: HTN-weakness Time Seen by Provider: 06/11/23 07:47 Source: patient, RN notes reviewed, old records reviewed Mode of arrival: ambulatory Limitations: no limitations - History of Present Illness Initial comments: 82-year-old female presenting for evaluation of weakness and a vague heaviness on the chest. Symptoms began yesterday. She does admit to cough but states this is chronic. She had been monitoring her blood pressure and pulse throughout the day. She is currently on losartan no other medications. Patient has a record of her blood pressures and there all excellent with minimal fluctuation including both blood pressure and pulse. She denies measured fever. Denies vomiting. Denies abdominal pain. Denies lower extremity pain or swelling. - Related Data Home Medications Medication Instructions Recorded Confirmed Biotin(Unknown Dose) 1 tab PO DAILY 10/07/19 10/07/19 Calcium/Magnesium/Zinc 1 tab PO DAILY 10/07/19 10/07/19 [Ylzlqso-Wxaxotgox-Xfio Tablet] Previous Rx's Medication Instructions Recorded Aspirin 81 mg PO DAILY chew 10/09/19 Sertraline HCl [Zoloft] 25 mg PO HS #30 tab 10/09/19 lisinopriL [Zestril] 5 mg PO DAILY #30 tab 10/09/19 Allergies Allergy/AdvReac Type Severity Reaction Status Date / Time Penicillins Allergy Rash/Hives Verified 06/11/23 07:40 Review of Systems ROS Statement: Those systems with pertinent positive or pertinent negative responses have been documented in the HPI. ROS Other: All systems not noted in ROS Statement are negative. 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 History of Any Multi-Drug Resistant Organisms: None Reported Past Surgical History: No Surgical Hx Reported Additional Past Surgical History / Comment(s): Pt states she has never had surgery Past Anesthesia/Blood Transfusion Reactions: No Reported Reaction Additional Past Anesthesia/Blood Transfusion Reaction / Comment(s): Pt has never had surgery Past Psychological History: No Psychological Hx Reported Smoking Status: Current every day smoker Past Alcohol Use History: None Reported Past Drug Use History: None Reported - Past Family History Father Family Medical History: COPD, Osteoarthritis (OA) Additional Family Medical History / Comment(s): Father at age 81 with TB and emphysema. He was a smoker. Mother Family Medical History: Hypertension, Renal Disease Additional Family Medical History / Comment(s): Mother of gallbladder disease at age 81 yrs. Also had renal failure. Brother(s) Family Medical History: Coronary Artery Disease (CAD), Diabetes Mellitus, Hyperlipidemia, Myocardial Infarction (NE), Prostate Disorder Additional Family Medical History / Comment(s): Patient has 2 brothers one with history of coronary artery disease status post CABG and diabetes. One brother has history of prostate cancer with exposure to agent orange. Sister(s) Family Medical History: Pulmonary Embolus (DVT no pulmonary emboli) Additional Family Medical History / Comment(s): Patient has one sister with multiple medical problems. One sister with history of DVT, sciatica, smoking history. Son(s) Additional Family Medical History / Comment(s): The patient has 4 sons 1 has from pancreatic cancer. One has history of prostate cancer stage IV in remission. He also has history of hypertension, obesity and smoking history. Other 2 sons have no major medical problems. General Exam Limitations: no limitations General appearance: alert, in no apparent distress Head exam: Present: atraumatic, normocephalic Eye exam: Present: normal appearance, PERRL ENT exam: Present: normal exam Neck exam: Present: normal inspection. Absent: tenderness, meningismus Respiratory exam: Present: normal lung sounds bilaterally. Absent: respiratory distress, wheezes Cardiovascular Exam: Present: regular rate, irregular rhythm GI/Abdominal exam: Present: soft. Absent: distended, tenderness, guarding Extremities exam: Present: normal inspection, normal capillary refill. Absent: pedal edema, calf tenderness Neurological exam: Present: alert, oriented X3, CN II-XII intact. Absent: motor sensory deficit Psychiatric exam: Present: normal affect, normal mood Skin exam: Present: warm, dry, intact. Absent: cyanosis, diaphoretic Course Vital Signs 06/11/23 06/11/23 06/11/23 07:38 09:00 10:30 Temperature 98.1 F Pulse Rate 105 H 106 H 99 Respiratory 20 22 20 Rate Blood Pressure 121/70 124/61 111/62 O2 Sat by Pulse 99 96 97 Oximetry Medical Decision Making - Medical Decision Making Was pt. sent in by a medical professional or institution (, [facility], PROJECT ARCHITECT, urgent care, hospital, or group home...) When possible be specific @ -No Did you speak to anyone other than the patient for history (EMS, parent, family, police, friend...)? What history was obtained from this source @ -Patient's son who is at bedside. Did you review nursing and triage notes (agree or disagree)? Why? @ -I reviewed and agree with nursing and triage notes Were old charts reviewed (outside hosp., previous admission, EMS record, old EKG, old radiological studies, urgent care reports/EKG's, group home records)? Report findings @ -No old charts were reviewed Differential Diagnosis (chest pain, altered mental status, abdominal pain women, abdominal pain men, vaginal bleeding, weakness, fever, dyspnea, syncope, headache, dizziness, GI bleed, back pain, seizure, CVA, palpatations, mental health, musculoskeletal)? @ -[Differential Palpitations Ventricular arrhythmias, atrial arrhythmias, myocardial infarction, anemia, thyrotoxicosis, electrolyte imbalance, hypokalemia, pulmonary embolism, pulmonary disease, drugs, alcohol, anxiety, stress.... This is not meant to be an all-inclusive list. EKG interpreted by me (3pts min.). @ EKG: Sinus rhythm rate of 97, VT interval 174, QRS duration 89, QTC 413 X-rays interpreted by me (1pt min.). @ -Chest x-ray showed hyperinflation consistent with COPD as well as concern for developing pneumonia. CT interpreted by me (1pt min.). @ -None done U/S interpreted by me (1pt. min.). @ -None done What testing was considered but not performed or refused? (CT, X-rays, U/S, labs)? Why? @ -None What meds were considered but not given or refused? Why? @ -None Did you discuss the management of the patient with other professionals (professionals i.e. [facility] Rubio, PROJECT ARCHITECT, lab, RT, psych nurse, high school social studies tutor, faculty neuropsychologist, teacher, jail officer, onsite case manager)? Give summary @ -[Case discussed with Dr. Hadley Was smoking cessation discussed for >3mins.? @ -No Was critical care preformed (if so, how long)? @ -No Were there social determinants of health that impacted care today? How? (Homele ssness, low income, unemployed, alcoholism, drug addiction, transportation, low edu. Level, literacy, decrease access to med. care, retirement, rehab)? @ -No Was there de-escalation of care discussed even if they declined (Discuss DNR or withdrawal of care, Hospice)? DNR status @ -No What co-morbidities impacted this encounter? (DM, HTN, Smoking, COPD, CAD, Cancer, CVA, ARF, Chemo, Hep., AIDS, mental health diagnosis, sleep apnea, morbid obesity)? @ -[COPD and hypertension. Was patient admitted / discharged? Hospital course, mention meds given and route, prescriptions, significant lab abnormalities, going to OR and other pertinent info. @ -[82-year-old female history COPD, hypertension presenting with weakness, chronic cough. She has an elevated white blood cell count. Chest x-ray shows concern for developing pneumonia. Other laboratory testing is unremarkable. She will be admitted for IV antibiotics and IV fluids. Undiagnosed new problem with uncertain prognosis? @ -No Drug Therapy requiring intensive monitoring for toxicity (Heparin, Nitro, Insulin, Cardizem)? @ -No Were any procedures done? @ -No Diagnosis/symptom? @ -Pneumonia Acute, or Chronic, or Acute on Chronic? @ -[Acute Uncomplicated (without systemic symptoms) or Complicated (systemic symptoms)? @ -default Side effects of treatment? @ -No Exacerbation, Progression, or Severe Exacerbation? @ -No Poses a threat to life or bodily function? How? (Chest pain, USA, NE, pneumonia, PE, COPD, DKA, ARF, appy, cholecystitis, CVA, Diverticulitis, Homicidal, Suicidal, threat to staff... and all critical care pts) @ -Yes, sepsis, respiratory failure - Lab Data Result diagrams: 06/11/23 09:03 06/11/23 09:03 Lab Results 06/11/23 06/11/23 06/11/23 Range/Units 09:03 09:03 09:03 WBC 17.7 H (3.8-10.6) k/uL RBC 5.36 (3.80-5.40) m/uL Hgb 16.3 H (11.4-16.0) gm/dL Hct 49.3 H (34.0-46.0) % MCV 92.0 (80.0-100.0) fL MCH 30.3 (25.0-35.0) pg MCHC 33.0 (31.0-37.0) g/dL RDW 12.3 (11.5-15.5) % Plt Count 257 (150-450) k/uL MPV 8.2 Neutrophils % 89 % Lymphocytes % 5 % Monocytes % 5 % Eosinophils % 1 % Basophils % 0 % Neutrophils # 15.8 H (1.3-7.7) k/uL Lymphocytes # 0.8 L (1.0-4.8) k/uL Monocytes # 0.9 (0-1.0) k/uL Eosinophils # 0.1 (0-0.7) k/uL Basophils # 0.1 (0-0.2) k/uL PT 11.6 (10.0-12.5) sec INR 1.1 (<1.2) APTT 27.3 (22.0-30.0) sec Sodium 133 L (137-145) mmol/L Potassium 4.6 (3.5-5.1) mmol/L Chloride 99 (98-107) mmol/L Carbon Dioxide 22 (22-30) mmol/L Anion Gap 12 mmol/L BUN 21 H (7-17) mg/dL Creatinine 1.06 H (0.52-1.04) mg/dL Est GFR (CKD-EPI)AfAm 56 (>60 ml/min/1.73 sqM) Est GFR (CKD-EPI)NonAf 48 (>60 ml/min/1.73 sqM) Glucose 99 (74-99) mg/dL Plasma Lactic Acid Shaq (0.7-2.0) mmol/L Calcium 9.6 (8.4-10.2) mg/dL Magnesium 2.3 (1.6-2.3) mg/dL Total Bilirubin 1.6 H (0.2-1.3) mg/dL AST 38 H (14-36) U/L ALT 23 (4-34) U/L Alkaline Phosphatase 82 (38-126) U/L Troponin I (0.000-0.034) ng/mL NT-Pro-B Natriuret Pep 1550 pg/mL Total Protein 8.1 (6.3-8.2) g/dL Albumin 4.5 (3.5-5.0) g/dL Urine Color Urine Appearance (Clear) Urine pH (5.0-8.0) Ur Specific [place] (1.001-1.035) Urine Protein (Negative) Urine Glucose (UA) (Negative) Urine Ketones (Negative) Urine Blood (Negative) Urine Nitrite (Negative) Urine Bilirubin (Negative) Urine Urobilinogen (<2.0) mg/dL Ur Leukocyte Esterase (Negative) Urine RBC (0-5) /hpf Urine WBC (0-5) /hpf Ur Squamous Epith Cells (0-4) /hpf Urine Bacteria (None) /hpf Urine Mucus (None) /hpf Influenza Type A (PCR) (Not Detectd) Influenza Type B (PCR) (Not Detectd) RSV (PCR) (Not Detectd) SARS-CoV-2 (PCR) (Not Detectd) 06/11/23 06/11/23 06/11/23 Range/Units 09:03 09:03 09:50 WBC (3.8-10.6) k/uL RBC (3.80-5.40) m/uL Hgb (11.4-16.0) gm/dL Hct (34.0-46.0) % MCV (80.0-100.0) fL MCH (25.0-35.0) pg MCHC (31.0-37.0) g/dL RDW (11.5-15.5) % Plt Count (150-450) k/uL MPV Neutrophils % % Lymphocytes % % Monocytes % % Eosinophils % % Basophils % % Neutrophils # (1.3-7.7) k/uL Lymphocytes # (1.0-4.8) k/uL Monocytes # (0-1.0) k/uL Eosinophils # (0-0.7) k/uL Basophils # (0-0.2) k/uL PT (10.0-12.5) sec INR (<1.2) APTT (22.0-30.0) sec Sodium (137-145) mmol/L Potassium (3.5-5.1) mmol/L Chloride (98-107) mmol/L Carbon Dioxide (22-30) mmol/L Anion Gap mmol/L BUN (7-17) mg/dL Creatinine (0.52-1.04) mg/dL Est GFR (CKD-EPI)AfAm (>60 ml/min/1.73 sqM) Est GFR (CKD-EPI)NonAf (>60 ml/min/1.73 sqM) Glucose (74-99) mg/dL Plasma Lactic Acid Shaq 1.7 (0.7-2.0) mmol/L Calcium (8.4-10.2) mg/dL Magnesium (1.6-2.3) mg/dL Total Bilirubin (0.2-1.3) mg/dL AST (14-36) U/L ALT (4-34) U/L Alkaline Phosphatase (38-126) U/L Troponin I <0.012 (0.000-0.034) ng/mL NT-Pro-B Natriuret Pep pg/mL Total Protein (6.3-8.2) g/dL Albumin (3.5-5.0) g/dL Urine Color Yellow Urine Appearance Cloudy H (Clear) Urine pH 7.0 (5.0-8.0) Ur Specific [place] 1.022 (1.001-1.035) Urine Protein 1+ H (Negative) Urine Glucose (UA) Negative (Negative) Urine Ketones 1+ H (Negative) Urine Blood Negative (Negative) Urine Nitrite Negative (Negative) Urine Bilirubin Negative (Negative) Urine Urobilinogen <2.0 (<2.0) mg/dL Ur Leukocyte Esterase Small H (Negative) Urine RBC 2 (0-5) /hpf Urine WBC 20 H (0-5) /hpf Ur Squamous Epith Cells 2 (0-4) /hpf Urine Bacteria Many H (None) /hpf Urine Mucus Many H (None) /hpf Influenza Type A (PCR) (Not Detectd) Influenza Type B (PCR) (Not Detectd) RSV (PCR) (Not Detectd) SARS-CoV-2 (PCR) (Not Detectd) 06/11/23 Range/Units 10:00 WBC (3.8-10.6) k/uL RBC (3.80-5.40) m/uL Hgb (11.4-16.0) gm/dL Hct (34.0-46.0) % MCV (80.0-100.0) fL MCH (25.0-35.0) pg MCHC (31.0-37.0) g/dL RDW (11.5-15.5) % Plt Count (150-450) k/uL MPV Neutrophils % % Lymphocytes % % Monocytes % % Eosinophils % % Basophils % % Neutrophils # (1.3-7.7) k/uL Lymphocytes # (1.0-4.8) k/uL Monocytes # (0-1.0) k/uL Eosinophils # (0-0.7) k/uL Basophils # (0-0.2) k/uL PT (10.0-12.5) sec INR (<1.2) APTT (22.0-30.0) sec Sodium (137-145) mmol/L Potassium (3.5-5.1) mmol/L Chloride (98-107) mmol/L Carbon Dioxide (22-30) mmol/L Anion Gap mmol/L BUN (7-17) mg/dL Creatinine (0.52-1.04) mg/dL Est GFR (CKD-EPI)AfAm (>60 ml/min/1.73 sqM) Est GFR (CKD-EPI)NonAf (>60 ml/min/1.73 sqM) Glucose (74-99) mg/dL Plasma Lactic Acid Shaq (0.7-2.0) mmol/L Calcium (8.4-10.2) mg/dL Magnesium (1.6-2.3) mg/dL Total Bilirubin (0.2-1.3) mg/dL AST (14-36) U/L ALT (4-34) U/L Alkaline Phosphatase (38-126) U/L Troponin I (0.000-0.034) ng/mL NT-Pro-B Natriuret Pep pg/mL Total Protein (6.3-8.2) g/dL Albumin (3.5-5.0) g/dL Urine Color Urine Appearance (Clear) Urine pH (5.0-8.0) Ur Specific [place] (1.001-1.035) Urine Protein (Negative) Urine Glucose (UA) (Negative) Urine Ketones (Negative) Urine Blood (Negative) Urine Nitrite (Negative) Urine Bilirubin (Negative) Urine Urobilinogen (<2.0) mg/dL Ur Leukocyte Esterase (Negative) Urine RBC (0-5) /hpf Urine WBC (0-5) /hpf Ur Squamous Epith Cells (0-4) /hpf Urine Bacteria (None) /hpf Urine Mucus (None) /hpf Influenza Type A (PCR) Not Detected (Not Detectd) Influenza Type B (PCR) Not Detected (Not Detectd) RSV (PCR) Not Detected (Not Detectd) SARS-CoV-2 (PCR) Not Detected (Not Detectd) Disposition Clinical Impression: Pneumonia, Dehydration Disposition: ADMITTED IP TO THIS HOSP Condition: Stable Is patient prescribed a controlled substance at d/c from ED?: No Referrals: Melita Wyatt MD [Primary Care Provider] - 1-2 days Time of Disposition: 12:20
[2023-06-11 09:23] LABS: Basophils # (A) 0.1 k/uL (0-0.2); Basophils % (A) 0 %; Eosinophils # (A) 0.1 k/uL (0-0.7); Eosinophils % (A) 1 %; HCT 49.3 % (34.0-46.0); HGB 16.3 gm/dL (11.4-16.0); Lymphocytes # (A) 0.8 k/uL (1.0-4.8); Lymphocytes % (A) 5 %; MCH 30.3 pg (25.0-35.0); Mean Platelet Volume 8.2; Monocytes # (A) 0.9 k/uL (0-1.0); Monocytes % (A) 5 %; Neutrophils # (A) 15.8 k/uL (1.3-7.7); Neutrophils % (A) 89 %; Platelet Count 257 k/uL (150-450); RBC 5.36 m/uL (3.80-5.40); RDW 12.3 % (11.5-15.5); WBC 17.7 k/uL (3.8-10.6)
[2023-06-11 09:35] LABS: INR 1.1 (<1.2); Partial Thromboplastin Time 27.3 sec (22.0-30.0); Prothrombin Time 11.6 sec (10.0-12.5)
[2023-06-11 09:47] LABS: NT-Pro-B-Type Natriuretic Pept 1550 pg/mL
--- NOTE | 2023-06-11 09:54 | XR ---
EXAMINATION TYPE: XR chest 2V DATE OF EXAM: 06/11/2023 9:41 AM COMPARISON: Chest radiographs from 08/22/2022, CT chest 03/18/2023 TECHNIQUE: XR chest 2V Frontal and lateral views of the chest. CLINICAL INDICATION:Female, 82 years old with history of Weakness; FINDINGS: Lungs/Pleura: Hyperinflation with flattening of the hemidiaphragms. Chronic senescent parenchymal philip nge. No pleural effusion or pneumothorax. Biapical pleural parenchymal scarring. Prominent left midlu ng airspace opacity. Additional right basilar patchy airspace opacities. Pulmonary vascularity: Unremarkable. Heart/mediastinum: Cardiomediastinal silhouette is unremarkable. Atherosclerotic calcifications are seen in the aorta. Musculoskeletal: No acute osseous pathology. IMPRESSION: 1. Right basilar and left midlung patchy airspace opacities concerning for pneumonia. 2. COPD changes.
[2023-06-11 09:57] LABS: ALT 23 U/L (4-34); AST 38 U/L (14-36); African American GFR (CKD) 56 (>60 ml/min/1.73 sqM); Albumin 4.5 g/dL (3.5-5.0); Alkaline Phosphatase 82 U/L (38-126); Anion Gap 12 mmol/L; Blood Urea Nitrogen 21 mg/dL (7-17); Calcium 9.6 mg/dL (8.4-10.2); Carbon Dioxide 22 mmol/L (22-30); Chloride 99 mmol/L (98-107); Glucose 99 mg/dL (74-99); Magnesium 2.3 mg/dL (1.6-2.3); Non-African American GFR(CKD) 48 (>60 ml/min/1.73 sqM); Sodium 133 mmol/L (137-145); Total Bilirubin 1.6 mg/dL (0.2-1.3); Total Protein 8.1 g/dL (6.3-8.2)
[2023-06-11 10:08] LABS: Potassium 4.6 mmol/L (3.5-5.1)
[2023-06-11 10:33] LABS: Appearance,Urine Cloudy (Clear); Bacteria,Urine Many /hpf; Bilirubin,Urine Negative (Negative); Blood,Urine Negative (Negative); Color,Urine Yellow; Glucose,Urine (UA) Negative (Negative); Ketones,Urine 1+ (Negative); Leukocyte Esterase,Urine Small (Negative); Mucus,Urine Many /hpf; Nitrite,Urine Negative (Negative); Protein,Urine 1+ (Negative); RBC,Urine 2 /hpf (0-5); Specific Gravity,Urine 1.022 (1.001-1.035); Squamous Epithelial Cell,Urine 2 /hpf (0-4); Urobilinogen,Urine <2.0 mg/dL (<2.0); WBC,Urine 20 /hpf (0-5)
[2023-06-11] MEDS ORDERED: AZITHROMYCIN 500 MG in SODIUM CHLORIDE 0.9% 250 ML IVPB STA (11:37)
[2023-06-11] MEDS ORDERED: NALOXONE 0.4 MG/ML 1 ML VIAL IV PRN (12:15)
[2023-06-11] MEDS: SODIUM CHLORIDE 0.9% 1,000 ML IV SCH (12:17)
[2023-06-11] MEDS: predniSONE 50 MG TAB PO SCH (12:18)
[2023-06-11] MEDS: IPRATROPIUM-ALBUTEROL 3 ML NEB INHALATION PRN (15:31)
[2023-06-12] MEDS: SODIUM CHLORIDE 0.9% 1,000 ML IV SCH ×2 (03:03→15:31)
--- NOTE | 2023-06-12 04:59 | P.CNPUL ---
History of Present Illness Consult date: 06/12/23 Requesting physician: Tito Sultana Reason for consult: COPD, pneumonia Chief complaint: Generalized weakness and fatigue History of present illness: I am seeing this patient in consultation today 06/12/2023 in the emergency room after she came in with nonspecific symptoms of generalized weakness and fatigue. Patient is a 82-year-old white female with past medical history significant for COPD, never smoker but with significant second hand exposure, bronchiectasis, pneumonia and prior MAC infection in 2016, hypertension, GERD. She does follow in the pulmonary office with Dr. Ballesteros for managment of her moderate COPD and acquired bronchiectasis. She has a FEV1 72% of predicted. She normally uses as needed albuterol nebs at home. Patient presented to emergency room yesterday morning with nonspecific complaints of generalized fatigue and weakness. She states that she has been lightheaded on arising. Her blood pressure has reportedly been borderline at home, and she has recently cut back the dosage on her antihypertensive medication. She feels like she "could just collapse" when standing. She is not very active at baseline. Her appetite has been fair. Denies any weight loss. She says she becomes short of breath with exertion, such as walking up to the mailbox. She also reports some associated chest heaviness pleuritic left-sided chest pain with deep inspiration or coughing. She does have a minimally productive cough, but this is chronic. No hemoptysis. Denies any fevers. Denies any sick contacts. Patient is currently sitting up in bed, on room air, in no acute distress. SpO2 is reading 99%. Chest x-ray on arrival demonstrated right basilar and left midlung patchy airspace opacities concerning for pneumonia. There were also chronic COPD-like changes and scaring. CBC count on arrival showed an elevated WBC count of 17.7, hemoglobin 16.3, hematocrit 49.3, platelets 257. BMP on arrival shows sodium 133, potassium 4.6, chloride 99, serum bicarbonate 22, BUN 21, creatinine 1.06, glucose 99. Normal saline infusing at 75 ml/hr. Urinalysis did show many bacteria and small leukocyte esterase. Patient denies any urinary complaints such as dysuria, frequency, hematuria. LFTs mildly elevated. Troponin less than 0.012. NT proBNP was elevated at 1550. EKG shows normal sinus rhythm without any obvious acute ischemic changes. Procalcitonin mildly elevated at 0.13. Patient has remained afebrile. She did receive a dose of Rocephin and azithromycin in the emergency room. Patient appears nontoxic and stable. She will be admitted to the general medical floor once bed available Review of Systems REVIEW OF SYSTEMS: CONSTITUTIONAL: Denies any recent significant weight loss or weight gain. Admits to fatigue and generalized weakness. EYES: Denies change in vision. EARS, NOSE, MOUTH, THROAT: Denies headaches, denies sore throat. CARDIOVASCULAR: Denies radiating chest pain, palpitations or syncopal episodes. Denies lower extremity swelling. RESPIRATORY: see HPI GASTROINTESTINAL: Denies change in appetite, abdominal pain, nausea and vomiting, or diarrhea GENITOURINARY: Denies hematuria, denies infections. MUSKULOSKELETAL: Denies pain, denies swelling. INTEGUMENTARY: Denies rash, denies eczema. NEUROLOGICAL: Denies recent memory loss, no recent seizure activity. PSYCHIATRIC: Denies anxiety, denies depression. HEMATOLOGIC/LYMPHATIC: Denies anemia, denies enlarged lymph node Past Medical History Past Medical History: Hypertension, Mitral Valve Prolapse (MVP), Pneumonia Additional Past Medical History / Comment(s): History of gallbladder problems, MVP yrs ago but pt states no longer a problem, 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 History of Any Multi-Drug Resistant Organisms: None Reported Past Surgical History: No Surgical Hx Reported Additional Past Surgical History / Comment(s): Pt states she has never had surgery Past Anesthesia/Blood Transfusion Reactions: No Reported Reaction Additional Past Anesthesia/Blood Transfusion Reaction / Comment(s): Pt has never had surgery Past Psychological History: No Psychological Hx Reported Additional Psychological History / Comment(s): Pt resides with her spouse. 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 Lifelong nonsmoker. No significant alcohol or recreational drug use. No experience. No international travel. Has been to [place] to visit her family who lives there. No pets in the home at this time. has been somewhat ill and she has been his caregiver. However she has not been around acutely ill or sick contacts. Smoking Status: Never smoker, Second hand smoke exposure Past Alcohol Use History: None Reported Additional Past Alcohol Use History / Comment(s): Patient is a lifelong nonsmoker but has had significant secondhand smoke exposure as a child and throughout adulthood. No illicit drug use, no alcohol use. Past Drug Use History: None Reported - Past Family History Father Family Medical History: COPD, Osteoarthritis (OA) Additional Family Medical History / Comment(s): Father at age 81 with TB and emphysema. He was a smoker. Mother Family Medical History: Hypertension, Renal Disease Additional Family Medical History / Comment(s): Mother of gallbladder disease at age 81 yrs. Also had renal failure. Brother(s) Family Medical History: Coronary Artery Disease (CAD), Diabetes Mellitus, Hyperlipidemia, Myocardial Infarction ([place]), Prostate Disorder Additional Family Medical History / Comment(s): Patient has 2 brothers one with history of coronary artery disease status post CABG and diabetes. One brother has history of prostate cancer with exposure to agent orange. Sister(s) Family Medical History: Pulmonary Embolus Additional Family Medical History / Comment(s): Patient has one sister with multiple medical problems. One sister with history of DVT, sciatica, smoking history. Son(s) Additional Family Medical History / Comment(s): The patient has 4 sons 1 has from pancreatic cancer. One has history of prostate cancer stage IV in remission. He also has history of hypertension, obesity and smoking history. Other 2 sons have no major medical problems. Medications and Allergies Home Medications Medication Instructions Recorded Confirmed Type Aspirin EC [Ecotrin Low Dose] 81 mg PO AC-SUPPER 06/11/23 06/11/23 History Biotin 5 mg PO AC-SUPPER 06/11/23 06/11/23 History Calcium/Magnesium 250mg 1 tab PO AC-SUPPER 06/11/23 06/11/23 History Cholecalciferol [Vitamin D3 (10 10 mcg PO AC-SUPPER 06/11/23 06/11/23 History Mcg = 400 Iu)] Famotidine/Ca Carb/Mag Hydrox 1 tab PO AC-SUPPER 06/11/23 06/11/23 History [Pepcid Complete Tablet Chew] Losartan [Cozaar] 12.5 mg PO DAILY 06/11/23 06/11/23 History Allergies Allergy/AdvReac Type Severity Reaction Status Date / Time Penicillins Allergy Rash/Hives Verified 06/11/23 13:07 Physical Exam Vitals: Vital Signs Temp Pulse Pulse Resp BP BP Pulse Ox 06/12/23 02:58 97.5 F L 84 18 113/67 99 06/11/23 23:20 97.9 F 84 18 105/62 97 06/11/23 18:52 97.7 F 98 16 108/61 94 L 06/11/23 17:00 16 115/58 06/11/23 16:00 100 18 108/69 95 06/11/23 15:43 90 06/11/23 15:33 86 06/11/23 14:30 94 11 L 128/69 96 06/11/23 14:00 104 H 22 111/68 97 06/11/23 13:30 90 12 111/68 96 06/11/23 13:00 96 18 112/63 100 06/11/23 12:30 10 L 112/63 97 06/11/23 12:00 92 20 110/62 95 06/11/23 11:30 94 24 107/57 95 06/11/23 11:00 98 24 111/61 96 06/11/23 10:30 99 20 111/62 97 06/11/23 09:00 106 H 22 124/61 96 06/11/23 07:38 98.1 F 105 H 20 121/70 99 Intake and Output 06/11/23 06/11/23 06/12/23 14:59 22:59 06:59 Other: Weight 49.442 kg 49.442 kg GENERAL EXAM: Alert, 82-year-old white female appearing stated age , comfortable in no apparent distress. HEAD: Normocephalic and atraumatic EYES: Normal reaction of pupils, equal size. NOSE: Clear with pink turbinates. THROAT: No erythema or exudates. NECK: No masses, no JVD. CHEST: No chest wall deformity. LUNGS: Equal air entry with scattered bibasilar inspiratory crackles. no wheeze, rhonchi or focal dullness. On room air. No conversational dyspnea or accessory muscle use.. CVS: S1 and S2 normal with no audible murmur, regular rhythm. No extra heart sounds ABDOMEN: No hepatosplenomegaly, active bowel sounds, no guarding or rigidity. SPINE: No scoliosis or deformity SKIN: No rashes CENTRAL NERVOUS SYSTEM: No focal deficits, tone is normal in all 4 extremities. EXTREMITIES: There is no peripheral edema, clubbing, or cyanosis. Peripheral pulses are intact. Results - Laboratory Findings CBC and BMP: 06/11/23 09:03 06/11/23 09:03 PT/INR, D-dimer PT 11.6 sec (10.0-12.5) 06/11/23 09:03 INR 1.1 (<1.2) 06/11/23 09:03 Abnormal lab findings: Abnormal Labs 06/11/23 06/11/23 06/11/23 09:03 09:03 09:03 WBC 17.7 H Hgb 16.3 H Hct 49.3 H Neutrophils # 15.8 H Lymphocytes # 0.8 L Sodium 133 L BUN 21 H Creatinine 1.06 H Total Bilirubin 1.6 H AST 38 H Procalcitonin 0.13 H Urine Appearance Urine Protein Urine Ketones Ur Leukocyte Esterase Urine WBC Urine Bacteria Urine Mucus 06/11/23 09:50 WBC Hgb Hct Neutrophils # Lymphocytes # Sodium BUN Creatinine Total Bilirubin AST Procalcitonin Urine Appearance Cloudy H Urine Protein 1+ H Urine Ketones 1+ H Ur Leukocyte Esterase Small H Urine WBC 20 H Urine Bacteria Many H Urine Mucus Many H - Diagnostic Findings Chest x-ray: image reviewed Assessment and Plan Assessment: Exertional dyspnea, possibly related to developing community acquired pneumonia. Chest x-ray on arrival demonstrated right basilar and left midlung patchy airspace opacities concerning for pneumonia. There were also chronic COPD-like changes and scaring. Negative for influenza, RSV, COVID-19. Leukocytosis, possibly secondary to above Suspected asymptomatic bacteriuria, on my evaluation, patient denies any urinary complaints Moderate chronic obstructive pulmonary disease, stable Chronic acquired bronchiectasis, patient has history of severe pneumonia and prior MAC infection in 2016 Generalized weakness Benign essential hypertension GERD, without esophagitis Plan: Patient's medications, labs, chest x-ray reviewed On room air Continue Barney's [id number] Patient was started on oral prednisone Continue empiric antibiotics, although, procalcitonin only modestly elevated at 0.13. Patient will be admitted to the general medical floor once bed available. We will continue to follow, and further recommendations are forthcoming I have personally seen and examined the patient, performed the documentation and the assessment and plan as written. Number of minutes spent on the visit:20 Time with Patient: Greater than 30
[2023-06-12] MEDS: predniSONE 50 MG TAB PO SCH (08:51)
[2023-06-12] MEDS: IPRATROPIUM-ALBUTEROL 3 ML NEB INHALATION SCH ×4 (09:26→21:24)
[2023-06-12] MEDS: AZITHROMYCIN 500 MG in SODIUM CHLORIDE 0.9% 250 ML IVPB SCH (10:10)
[2023-06-12 16:49] VITALS: BMI 17.6
--- NOTE | 2023-06-12 17:28 | P.HPIM ---
History of Present Illness H&P Date: 06/11/23 Cesia Samayoa, is an 82-year-old female who presented to [facility] emergency room with a chief complaint of heaviness in the chest and cough. She was evaluated in the emergency room vital examination on presentation revealed a temperature of 98.1 pulse 105 respiration 20 blood pressure 121/70 pulse ox 99% on room air Laboratory data reveals a white blood count of 17.7 hemoglobin 16.3 platelet count 257 sodium 133 potassium 4.6 BUN 21 creatinine 1.06 Testing in the emergency room revealed chest x-ray done in the emergency room revealed right basilar and left midlung patchy airspace opacity concerning for pneumonia Patient was admitted to medical floor for further evaluation and treatment Past Medical History Past Medical History: Hypertension, Mitral Valve Prolapse (MVP), Pneumonia Additional Past Medical History / Comment(s): History of gallbladder problems, MVP yrs ago but pt states no longer a problem, 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 History of Any Multi-Drug Resistant Organisms: None Reported Past Surgical History: No Surgical Hx Reported Additional Past Surgical History / Comment(s): Pt states she has never had surgery Past Anesthesia/Blood Transfusion Reactions: No Reported Reaction Additional Past Anesthesia/Blood Transfusion Reaction / Comment(s): Pt has never had surgery Past Psychological History: No Psychological Hx Reported Smoking Status: Current every day smoker Past Alcohol Use History: None Reported Past Drug Use History: None Reported - Past Family History Father Family Medical History: COPD, Osteoarthritis (OA) Additional Family Medical History / Comment(s): Father at age 81 with TB and emphysema. He was a smoker. Mother Family Medical History: Hypertension, Renal Disease Additional Family Medical History / Comment(s): Mother of gallbladder disease at age 81 yrs. Also had renal failure. Brother(s) Family Medical History: Coronary Artery Disease (CAD), Diabetes Mellitus, Hyperlipidemia, Myocardial Infarction ([place]), Prostate Disorder Additional Family Medical History / Comment(s): Patient has 2 brothers one with history of coronary artery disease status post CABG and diabetes. One brother has history of prostate cancer with exposure to agent orange. Sister(s) Family Medical History: Pulmonary Embolus (DVT no pulmonary emboli) Additional Family Medical History / Comment(s): Patient has one sister with multiple medical problems. One sister with history of DVT, sciatica, smoking history. Son(s) Additional Family Medical History / Comment(s): The patient has 4 sons 1 has from pancreatic cancer. One has history of prostate cancer stage IV in remission. He also has history of hypertension, obesity and smoking history. Other 2 sons have no major medical problems. Medications and Allergies Home Medications Medication Instructions Recorded Confirmed Type Aspirin EC [Ecotrin Low Dose] 81 mg PO AC-SUPPER 06/11/23 06/11/23 History Biotin 5 mg PO AC-SUPPER 06/11/23 06/11/23 History Calcium/Magnesium 250mg 1 tab PO AC-SUPPER 06/11/23 06/11/23 History Cholecalciferol [Vitamin D3 (10 10 mcg PO AC-SUPPER 06/11/23 06/11/23 History Mcg = 400 Iu)] Famotidine/Ca Carb/Mag Hydrox 1 tab PO AC-SUPPER 06/11/23 06/11/23 History [Pepcid Complete Tablet Chew] Losartan [Cozaar] 12.5 mg PO DAILY 06/11/23 06/11/23 History Allergies Allergy/AdvReac Type Severity Reaction Status Date / Time Penicillins Allergy Rash/Hives Verified 06/11/23 13:07 Physical Exam Vitals: Vital Signs Temp Pulse Resp BP Pulse Ox 06/11/23 14:00 104 H 22 111/68 97 06/11/23 13:30 90 12 111/68 96 06/11/23 13:00 96 18 112/63 100 06/11/23 12:30 10 L 112/63 97 06/11/23 12:00 92 20 110/62 95 06/11/23 11:30 94 24 107/57 95 06/11/23 11:00 98 24 111/61 96 06/11/23 10:30 99 20 111/62 97 06/11/23 09:00 106 H 22 124/61 96 06/11/23 07:38 98.1 F 105 H 20 121/70 99 Intake and Output 06/10/23 06/11/23 06/11/23 22:59 06:59 14:59 Other: Weight 49.442 kg In general patient is alert and oriented x 3 in no distress HEENT head normocephalic and atraumatic Neck is supple no JVD no goiter no lymphadenopathy no carotid bruit Chest examination reveals a scattered crackles bilaterally no wheezing Cardiac exam reveals regular heart sounds S1 and S2 no gallops no murmurs Abdomen is soft nontender no organomegaly was normal bowel sounds Extremity exam reveals no edema no cyanosis or clubbing Neurological examination reveals no gross focal deficits Results CBC & Chem 7: 06/11/23 09:03 06/11/23 09:03 Labs: Abnormal Lab Results - Last 24 Hours (Table) 06/11/23 06/11/23 06/11/23 Range/Units 09:03 09:03 09:50 WBC 17.7 H (3.8-10.6) k/uL Hgb 16.3 H (11.4-16.0) gm/dL Hct 49.3 H (34.0-46.0) % Neutrophils # 15.8 H (1.3-7.7) k/uL Lymphocytes # 0.8 L (1.0-4.8) k/uL Sodium 133 L (137-145) mmol/L BUN 21 H (7-17) mg/dL Creatinine 1.06 H (0.52-1.04) mg/dL Total Bilirubin 1.6 H (0.2-1.3) mg/dL AST 38 H (14-36) U/L Urine Appearance Cloudy H (Clear) Urine Protein 1+ H (Negative) Urine Ketones 1+ H (Negative) Ur Leukocyte Esterase Small H (Negative) Urine WBC 20 H (0-5) /hpf Urine Bacteria Many H (None) /hpf Urine Mucus Many H (None) /hpf Assessment and Plan Plan: Community-acquired pneumonia, bilateral Shortness of breath likely related to pneumonia and underlying COPD Leukocytosis Previous history of MAC infection in 2016 Underlying history of hypertension Underlying history of gastroesophageal reflux disease At this time patient was seen and examined Home medications reviewed and reordered Patient was started on IV ceftriaxone and IV Zithromax in the emergency room Pulmonary consultation was requested For DVT prophylaxis subcu heparin Will follow closely
[2023-06-12] MEDS ORDERED: NON FORMULARY DRUG (Biotin [Biotin] 5 MG Capsule) PO SCH (17:30)
[2023-06-12] MEDS ORDERED: CALCIUM PO SCH (17:30)
[2023-06-12] MEDS ORDERED: MAGNESIUM PO SCH (17:30)
[2023-06-12] MEDS: ASPIRIN 81 MG PO SCH (18:49)
[2023-06-12] MEDS: FAMOTIDINE 20 MG TAB PO SCH (18:49)
[2023-06-12] MEDS: CHOLECALCIFEROL 10 MCG (400 IU) TABLET PO SCH (18:50)
--- NOTE | 2023-06-13 07:45 | XR ---
EXAMINATION TYPE: XR chest 1V portable DATE OF EXAM: 06/13/2023 COMPARISON: 06/11/2023 INDICATION: Pneumonia TECHNIQUE: Single frontal view of the chest is obtained. FINDINGS: The heart size is normal. The pulmonary vasculature is normal. There appears to be some hyperinflation present. Blunting left costophrenic angle is present. COPD sh ould be considered IMPRESSION: 1. COPD. 2. Blunting of the left costophrenic angle. Minimal effusion may be present. Some subsegmental atelec tasis or scarring may be present.
[2023-06-13] MEDS: IPRATROPIUM-ALBUTEROL 3 ML NEB INHALATION SCH ×4 (08:41→20:10)
[2023-06-13] MEDS: LOSARTAN 25 MG TAB PO SCH (10:20)
[2023-06-13] MEDS: ENOXAPARIN 40 MG/0.4 ML SYRINGE SQ SCH (10:20)
[2023-06-13] MEDS: predniSONE 50 MG TAB PO SCH (10:54)
--- NOTE | 2023-06-13 11:37 | CDI ---
Documentation Clarification Form Date: From: Lacey Dias Phone: [phone] Admit Date: 06/11/2023 12:15:00 PM Patient Name: Cesia Samayoa Visit Number: [id number] Discharge Date: ATTENTION: The Clinical Documentation Specialists (CDI) and [facility] Coding Staff appreciate your assistance in clarifying documentation. Please respond to the clarification below the line at the bottom and electronically sign. The CDI & [facility] Coding staff will review the response and follow-up if needed. Please note: Queries are made part of the Legal Health Record. If you have any questions, please contact the author of this message via ITS. Dr. Priya Hadley Patient has a documented BMI of 17.6. Additional clarification is requested. History/Risk Factors: "82-year-old female who presented to [facility] emergency room with a chief complaint of heaviness in the chest and cough." - Per H&P on 06/11 Clinical Indicators: "Pt reports weight loss 10 years ago d/t pneumonia w/ hospitalization" Nutritional Intake: Good, Pt consumed 75-100% of meals - Per Nutritional Assessment on 06/12 Patients weight is 49.442 kg Patients height is 5' 6" Calculated BMI is 17.6 Treatments: RD consult, "ensure enlive BID" - Per Nutritional Assessment on 06/12 Please clarify, is there is an additional diagnosis that is clinically appropriate for this patient? [ x ] Underweight [ ] Malnutrition, (further specify severity and type) [ ] Other, please specify [ ] Unable to determine MTDD
[2023-06-13] MEDS: AZITHROMYCIN 500 MG in SODIUM CHLORIDE 0.9% 250 ML IVPB SCH (11:47)
[2023-06-13] MEDS: SODIUM CHLORIDE 0.9% 1,000 ML IV SCH ×2 (11:50→19:42)
--- NOTE | 2023-06-13 12:16 | P.PN ---
Subjective Progress Note Date: 06/13/23 I am seeing this patient in consultation today 06/12/2023 in the emergency room after she came in with nonspecific symptoms of generalized weakness and fatigue. Patient is a 82-year-old white female with past medical history significant for COPD, never smoker but with significant second hand exposure, bronchiectasis, pneumonia and prior MAC infection in 2016, hypertension, GERD. She does follow in the pulmonary office with Dr. Ballesteros for managment of her moderate COPD and acquired bronchiectasis. She has a FEV1 72% of predicted. She normally uses as needed albuterol nebs at home. Patient presented to emergency room yesterday morning with nonspecific complaints of generalized fatigue and weakness. She states that she has been lightheaded on arising. Her blood pressure has reportedly been borderline at home, and she has recently cut back the dosage on her antihypertensive medication. She feels like she "could just collapse" when standing. She is not very active at baseline. Her appetite has been fair. Denies any weight loss. She says she becomes short of breath with exertion, such as walking up to the mailbox. She also reports some associated chest heaviness pleuritic left-sided chest pain with deep inspiration or coughing. She does have a minimally productive cough, but this is chronic. No hemoptysis. Denies any fevers. Denies any sick contacts. Patient is currently sitting up in bed, on room air, in no acute distress. SpO2 is reading 99%. Chest x-ray on arrival demonstrated right basilar and left midlung patchy airspace opacities concerning for pneumonia. There were also chronic COPD-like changes and scaring. CBC count on arrival showed an elevated WBC count of 17.7, hemoglobin 16.3, hematocrit 49.3, platelets 257. BMP on arrival shows sodium 133, potassium 4.6, chloride 99, serum bicarbonate 22, BUN 21, creatinine 1.06, glucose 99. Normal saline infusing at 75 ml/hr. Urinalysis did show many bacteria and small leukocyte esterase. Patient denies any urinary complaints such as dysuria, frequency, hematuria. LFTs mildly elevated. Troponin less than 0.012. NT proBNP was elevated at 1550. EKG shows normal sinus rhythm without any obvious acute ischemic changes. Procalcitonin mildly elevated at 0.13. Patient has remained afebrile. She did receive a dose of Rocephin and azithromycin in the emergency room. Patient appears nontoxic and stable. She will be admitted to the general medical floor once bed available The patient is seen today 06/13/2023 in follow-up on the regular medical floor. She is currently resting comfortably in bed. Awake and alert in no acute distress. She is maintaining O2 saturations in the 90s on room air. Chest x- ray reveals evidence of COPD. There is blunting of left costophrenic angle. Minimal effusion. Some segmental atelectasis versus scarring. She has normal saline at 75 ML's per hour. She is currently on ceftriaxone and azithromycin along with a prednisone taper. Her pro-calcitonin was 0.13. Blood cultures reveal no growth. No new labs today. Remains on bronchodilators. Lovenox for DVT prophylaxis. Objective - Vital Signs Vital signs: Vital Signs Temp 97.8 F 06/13/23 07:08 Pulse 98 06/13/23 12:06 Resp 18 06/13/23 07:08 BP 129/81 06/13/23 07:08 Pulse Ox 99 06/13/23 07:08 FiO2 Intake & Output 06/12/23 06/13/23 06/13/23 18:59 06:59 18:59 Intake Total 900 Balance 900 Weight 49.442 kg Intake: IV 900 Sodium Chloride 0.9% 1, 900 000 ml @ 75 mls/hr IV . [id number] [facility] Rx#:[id number] Other: # Voids 2 1 - Exam GENERAL EXAM: Alert, active, pleasant 82-year-old female, on room air, comfortable in no apparent distress. HEAD: Normocephalic. EYES: Normal reaction of pupils, equal size. NOSE: Clear with pink turbinates. THROAT: No erythema or exudates. NECK: No masses, no JVD. CHEST: No chest wall deformity. LUNGS: Equal air entry with faint end expiratory wheeze, few crackles in left base. CVS: S1 and S2 normal with no audible murmur, regular rhythm. ABDOMEN: No hepatosplenomegaly, normal bowel sounds, no guarding or rigidity. SPINE: No scoliosis or deformity SKIN: No rashes CENTRAL NERVOUS SYSTEM: No focal deficits, tone is normal in all 4 extremities. EXTREMITIES: There is no peripheral edema. No clubbing, no cyanosis. Peripheral pulses are intact. - Labs CBC & Chem 7: 06/11/23 09:03 06/11/23 09:03 Labs: Microbiology - Last 24 Hours (Table) 06/11/23 12:03 Blood Culture - Preliminary Blood 06/11/23 12:00 Blood Culture - Preliminary Blood Assessment and Plan Assessment: Exertional dyspnea, possibly related to developing community acquired pneumonia. Chest x-ray on arrival demonstrated right basilar and left midlung patchy airspace opacities concerning for pneumonia. There were also chronic COPD-like changes and scaring. Negative for influenza, RSV, COVID-19. Pro-calcitonin 0.13. Remains on ceftriaxone and azithromycin. Leukocytosis, possibly secondary to above Suspected asymptomatic bacteriuria, patient denies any urinary complaints Moderate chronic obstructive pulmonary disease, stable Chronic acquired bronchiectasis, patient has history of severe pneumonia and prior MAC infection in 2016 Generalized weakness Benign essential hypertension GERD, without esophagitis Plan: The patient was seen and evaluated Chest x-ray, cultures and medications reviewed Procalcitonin 0.13 Continuing ceftriaxone and azithromycin Continuing bronchodilators, prednisone taper Lovenox for DVT prophylaxis We will continue to follow This patient was seen independently by the nurse practitioner I have personally seen and examined the patient, performed the documentation and the assessment and plan as written. Number of minutes spent on the visit: 24.
--- NOTE | 2023-06-13 17:07 | P.PN ---
Subjective Progress Note Date: 06/13/23 Cesia Samayoa, is an 82-year-old female who presented to [facility] emergency room with a chief complaint of heaviness in the chest and cough. She was evaluated in the emergency room vital examination on presentation revealed a temperature of 98.1 pulse 105 respiration 20 blood pressure 121/70 pulse ox 99% on room air Laboratory data reveals a white blood count of 17.7 hemoglobin 16.3 platelet count 257 sodium 133 potassium 4.6 BUN 21 creatinine 1.06 Testing in the emergency room revealed chest x-ray done in the emergency room revealed right basilar and left midlung patchy airspace opacity concerning for pneumonia Patient was admitted to medical floor for further evaluation and treatment On 06/13/2023 patient was seen and examined on the medical floor she is alert and oriented 3 in no apparent distress she is feeling better she is complaining of cough without sputum production she is still having some chest tightness but improving since yesterday there is no fever or chills no chest pain no nausea or vomiting no abdominal pain no diarrhea and no urinary symptoms Objective - Vital Signs Vital signs: Vital Signs Temp 97.8 F 06/13/23 07:08 Pulse 100 06/13/23 08:51 Resp 18 06/13/23 07:08 BP 129/81 06/13/23 07:08 Pulse Ox 99 06/13/23 07:08 FiO2 Intake & Output 06/12/23 06/13/23 06/13/23 18:59 06:59 18:59 Intake Total 900 Balance 900 Weight 49.442 kg Intake: IV 900 Sodium Chloride 0.9% 1, 900 000 ml @ 75 mls/hr IV . [id number] [facility] Rx#:[id number] Other: # Voids 2 1 - Exam In general patient is alert and oriented x 3 in no distress HEENT head normocephalic and atraumatic Neck is supple no JVD no goiter no lymphadenopathy no carotid bruit Chest examination reveals a scattered crackles bilaterally no wheezing Cardiac exam reveals regular heart sounds S1 and S2 no gallops no murmurs Abdomen is soft nontender no organomegaly was normal bowel sounds Extremity exam reveals no edema no cyanosis or clubbing Neurological examination reveals no gross focal deficits - Labs CBC & Chem 7: 06/11/23 09:03 06/11/23 09:03 Labs: Microbiology - Last 24 Hours (Table) 06/11/23 12:03 Blood Culture - Preliminary Blood 06/11/23 12:00 Blood Culture - Preliminary Blood Assessment and Plan Plan: Community-acquired pneumonia, bilateral Shortness of breath likely related to pneumonia and underlying COPD Leukocytosis Previous history of MAC infection in 2016 Underlying history of hypertension Underlying history of gastroesophageal reflux disease At this time patient was seen and examined Home medications reviewed and reordered Patient was started on IV ceftriaxone and IV Zithromax in the emergency room Pulmonary consultation was requested For DVT prophylaxis subcu heparin Will follow closely
[2023-06-13] MEDS: FAMOTIDINE 20 MG TAB PO SCH (17:16)
[2023-06-13] MEDS: CHOLECALCIFEROL 10 MCG (400 IU) TABLET PO SCH (17:16)
[2023-06-13] MEDS: ASPIRIN 81 MG PO SCH (17:16)
[2023-06-13] MEDS ORDERED: MELATONIN 5 MG TABLET PO PRN (22:16)
[2023-06-14 02:40] VITALS: RESP 16
[2023-06-14] MEDS: IPRATROPIUM-ALBUTEROL 3 ML NEB INHALATION SCH ×2 (07:36→11:34)
[2023-06-14 08:23] VITALS: BP 132/82; TEMP 97.6
[2023-06-14 09:00] LABS: ALT 19 U/L (8-44); AST 14 U/L (13-35); Albumin 3.1 g/dL (3.8-4.9); Albumin/Globulin Ratio 1.72 Ratio (1.60-3.17); Alkaline Phosphatase 67 U/L (41-126); BUN/Creat Ratio 17.89 Ratio (12.00-20.00); Blood Urea Nitrogen 16.1 mg/dL (9.0-27.0); Carbon Dioxide 23.2 mmol/L (21.6-31.8); Chloride 108 mmol/L (96-109); Globulin 1.8 g/dL (1.6-3.3); Glucose 98 mg/dL (70-110); Potassium 5.1 mmol/L (3.5-5.5); Sodium 139 mmol/L (135-145); Total Bilirubin 0.2 mg/dL (0.3-1.2); Total Protein 4.9 g/dL (6.2-8.2)
[2023-06-14 09:36] LABS: Basophils # (A) 0.01 X 10*3/uL (0.00-0.10); Basophils % (A) 0.1 %; Eosinophils # (A) 0 X 10*3/uL (0.04-0.35); Eosinophils % (A) 0 %; HCT 37.9 % (37.2-46.3); HGB 11.8 g/dL (12.0-15.0); Lymphocytes # (A) 0.61 X 10*3/uL (0.90-5.00); Lymphocytes % (A) 6.8 %; MCH 29.1 pg (27.0-32.0); MCHC 31.1 g/dL (32.0-37.0); MCV 93.3 FL (80.0-97.0); Mean Platelet Volume 10.8 FL (9.5-12.2); Monocytes # (A) 0.55 X 10*3/uL (0.20-1.00); Monocytes % (A) 6.1 %; NRBC Per 100 WBC 0 X 10*3/uL (0.00-0.01); Neutrophils # (A) 7.76 X 10*3/uL (1.80-7.70); Neutrophils % (A) 86.6 %; Platelet Count 239 X 10*3/uL (140-440); RBC 4.06 X 10*6/uL (4.10-5.20); RDW 12.6 % (11.5-14.5); WBC 8.97 X 10*3/uL (4.50-10.00)
[2023-06-14] MEDS: AZITHROMYCIN 500 MG in SODIUM CHLORIDE 0.9% 250 ML IVPB SCH (10:31)
[2023-06-14] MEDS: ENOXAPARIN 40 MG/0.4 ML SYRINGE SQ SCH (10:32)
[2023-06-14] MEDS: predniSONE 50 MG TAB PO SCH (10:33)
[2023-06-14] MEDS: LOSARTAN 25 MG TAB PO SCH (10:33)
[2023-06-14] MEDS: SODIUM CHLORIDE 0.9% 1,000 ML IV SCH (10:51)
--- NOTE | 2023-06-14 11:21 | P.PN ---
Subjective Progress Note Date: 06/14/23 I am seeing this patient in consultation today 06/12/2023 in the emergency room after she came in with nonspecific symptoms of generalized weakness and fatigue. Patient is a 82-year-old white female with past medical history significant for COPD, never smoker but with significant second hand exposure, bronchiectasis, pneumonia and prior MAC infection in 2016, hypertension, GERD. She does follow in the pulmonary office with Dr. Ballesteros for managment of her moderate COPD and acquired bronchiectasis. She has a FEV1 72% of predicted. She normally uses as needed albuterol nebs at home. Patient presented to emergency room yesterday morning with nonspecific complaints of generalized fatigue and weakness. She states that she has been lightheaded on arising. Her blood pressure has reportedly been borderline at home, and she has recently cut back the dosage on her antihypertensive medication. She feels like she "could just collapse" when standing. She is not very active at baseline. Her appetite has been fair. Denies any weight loss. She says she becomes short of breath with exertion, such as walking up to the mailbox. She also reports some associated chest heaviness pleuritic left-sided chest pain with deep inspiration or coughing. She does have a minimally productive cough, but this is chronic. No hemoptysis. Denies any fevers. Denies any sick contacts. Patient is currently sitting up in bed, on room air, in no acute distress. SpO2 is reading 99%. Chest x-ray on arrival demonstrated right basilar and left midlung patchy airspace opacities concerning for pneumonia. There were also chronic COPD-like changes and scaring. CBC count on arrival showed an elevated WBC count of 17.7, hemoglobin 16.3, hematocrit 49.3, platelets 257. BMP on arrival shows sodium 133, potassium 4.6, chloride 99, serum bicarbonate 22, BUN 21, creatinine 1.06, glucose 99. Normal saline infusing at 75 ml/hr. Urinalysis did show many bacteria and small leukocyte esterase. Patient denies any urinary complaints such as dysuria, frequency, hematuria. LFTs mildly elevated. Troponin less than 0.012. NT proBNP was elevated at 1550. EKG shows normal sinus rhythm without any obvious acute ischemic changes. Procalcitonin mildly elevated at 0.13. Patient has remained afebrile. She did receive a dose of Rocephin and azithromycin in the emergency room. Patient appears nontoxic and stable. She will be admitted to the general medical floor once bed available The patient is seen today 06/13/2023 in follow-up on the regular medical floor. She is currently resting comfortably in bed. Awake and alert in no acute distress. She is maintaining O2 saturations in the 90s on room air. Chest x- ray reveals evidence of COPD. There is blunting of left costophrenic angle. Minimal effusion. Some segmental atelectasis versus scarring. She has normal saline at 75 ML's per hour. She is currently on ceftriaxone and azithromycin along with a prednisone taper. Her pro-calcitonin was 0.13. Blood cultures reveal no growth. No new labs today. Remains on bronchodilators. Lovenox for DVT prophylaxis. The patient is seen today 06/14/2023 in follow-up on the regular medical floor. She is resting quite comfortably in bed. Awake and alert in no acute distress. Denies any worsening shortness of breath, cough or congestion. She is maintaining good O2 saturations in the 90s on room air. She has normal saline at 75 ML's per hour. Blood cultures revealed no growth. White count 8.9. H emoglobin 11.8. Platelets 239. Sodium 139. Potassium 5.1. Bicarb 23. BUN 16. Creatinine 0.9. Glucose 98. Remains on bronchodilators and steroids. Antibiotics in the form of Ceftriaxone. Lovenox for DVT prophylaxis. Objective - Vital Signs Vital signs: Vital Signs Temp 97.6 F 06/14/23 08:00 Pulse 81 06/14/23 08:00 Resp 16 06/14/23 01:12 BP 132/82 06/14/23 08:00 Pulse Ox 99 06/14/23 08:00 FiO2 Intake & Output 06/13/23 06/14/23 06/14/23 18:59 06:59 18:59 Intake Total 1200 Balance 1200 Intake: Intake, IV Titration 1200 Amount Azithromycin 500 mg In 250 Sodium Chloride 0.9% 250 ml @ 250 mls/hr IVPB DAILY [facility] Rx#:[id number] Sodium Chloride 0.9% 1, 900 000 ml @ 75 mls/hr IV . [id number] [facility] Rx#:[id number] cefTRIAXone 2 gm In 50 Sodium Chloride 0.9% 50 ml @ 100 mls/hr IVPB Q24HR [facility] Rx#:[id number] Other: Voiding Method Toilet # Voids 1 - Exam GENERAL EXAM: Alert, 82-year-old female, on room air, comfortable in no apparent distress. HEAD: Normocephalic. EYES: Normal reaction of pupils, equal size. NOSE: Clear with pink turbinates. THROAT: No erythema or exudates. NECK: No masses, no JVD. CHEST: No chest wall deformity. LUNGS: Equal air entry with faint end expiratory wheeze, few crackles in left base. CVS: S1 and S2 normal with no audible murmur, regular rhythm. ABDOMEN: No hepatosplenomegaly, normal bowel sounds, no guarding or rigidity. SPINE: No scoliosis or deformity SKIN: No rashes CENTRAL NERVOUS SYSTEM: No focal deficits, tone is normal in all 4 extremities. EXTREMITIES: There is no peripheral edema. No clubbing, no cyanosis. Peripheral pulses are intact. - Labs CBC & Chem 7: 06/14/23 06:11 06/14/23 06:11 Labs: Abnormal Lab Results - Last 24 Hours (Table) 06/14/23 06/14/23 Range/Units 06:11 06:11 RBC 4.06 L (4.10-5.20) X 10*6/uL Hgb 11.8 L (12.0-15.0) g/dL MCHC 31.1 L (32.0-37.0) g/dL Neutrophils # 7.76 H (1.80-7.70) X 10*3/uL Lymphocytes # 0.61 L (0.90-5.00) X 10*3/uL Eosinophils # 0 L (0.04-0.35) X 10*3/uL Total Bilirubin 0.2 L (0.3-1.2) mg/dL Total Protein 4.9 L (6.2-8.2) g/dL Albumin 3.1 L (3.8-4.9) g/dL Microbiology - Last 24 Hours (Table) 06/11/23 12:03 Blood Culture - Preliminary Blood 06/11/23 12:00 Blood Culture - Preliminary Blood Assessment and Plan Assessment: Exertional dyspnea, possibly related to developing community acquired pneumonia. Chest x-ray on arrival demonstrated right basilar and left midlung patchy airspace opacities concerning for pneumonia. There were also chronic COPD-like changes and scaring. Negative for influenza, RSV, COVID-19. Pro-calcitonin 0.13. Remains on ceftriaxone and completed azithromycin Leukocytosis, possibly secondary to above Suspected asymptomatic bacteriuria, patient denies any urinary complaints Moderate chronic obstructive pulmonary disease, stable Chronic acquired bronchiectasis, patient has history of severe pneumonia and prior MAC infection in 2016 Generalized weakness Benign essential hypertension GERD, without esophagitis Plan: The patient was seen and evaluated Cultures and medications reviewed Stable and on room air Cleared for discharge from the pulmonary standpoint Complete a course of antibiotics Complete a course of prednisone taper Follow up in the office in 1 week I have personally seen and examined the patient, performed the documentation and the assessment and plan as written. Number of minutes spent on the visit: 10.
--- NOTE | 2023-06-14 11:24 | P.DS ---
Providers Date of admission: 06/11/23 12:15 Expected date of discharge: 06/14/23 Attending physician: Priya Hadley Consults: 06/11/23 12:15 Consult Physician Routine Consulting Provider: Kong Ballesteros Consult Reason/Comments: COPD, pneumonia Do you want consulting provider notified?: Yes Primary care physician: Melita Wyatt [facility] Course: Discharge diagnosis Community-acquired pneumonia, bilateral Shortness of breath likely related to pneumonia and underlying COPD Leukocytosis Previous history of MAC infection in 2016 Underlying history of hypertension Underlying history of gastroesophageal reflux disease no Hospital course Feli Samayoa, is an 82-year-old female who presented to [facility] emergency room with a chief complaint of heaviness in the chest and cough. She was evaluated in the emergency room vital examination on presentation revealed a temperature of 98.1 pulse 105 respiration 20 blood pressure 121/70 pulse ox 99% on room air Laboratory data reveals a white blood count of 17.7 hemoglobin 16.3 platelet count 257 sodium 133 potassium 4.6 BUN 21 creatinine 1.06 Testing in the emergency room revealed chest x-ray done in the emergency room revealed right basilar and left midlung patchy airspace opacity concerning for pneumonia Patient was admitted to medical floor for further evaluation and treatment On 06/13/2023 patient was seen and examined on the medical floor she is alert and oriented 3 in no apparent distress she is feeling better she is complaining of cough without sputum production she is still having some chest tightness but improving since yesterday there is no fever or chills no chest pain no nausea or vomiting no abdominal pain no diarrhea and no urinary symptoms On 06/14/2023 patient is alert and oriented 3. Patient reports significant improvement with shortness of breath and cough. Discussed case with pulmonary services. Patient has been cleared for discharge from pulmonary standpoint patient will be DC'd on Ceftin for one week and prednisone taper patient to follow-up with her [facility] for further management. At this time patient denies chest pain or shortness of breath. Patient denies nausea vomiting diarrhea. Patient denies any urinary burning or frequency Patient Condition at Discharge: Stable Plan - Discharge Summary Discharge Rx Participant: No New Discharge Prescriptions: New predniSONE 10 mg PO DIRECTED 12 Days #30 tab cefUROXime axetiL [Ceftin] 500 mg PO BID 7 Days #14 tab Continue Aspirin EC [Ecotrin Low Dose] 81 mg PO AC-SUPPER Losartan [Cozaar] 12.5 mg PO DAILY Cholecalciferol [Vitamin D3 (10 Mcg = 400 Iu)] 10 mcg PO AC-SUPPER Biotin 5 mg PO AC-SUPPER Famotidine/Ca Carb/Mag Hydrox [Pepcid Complete Tablet Chew] 1 tab PO AC- SUPPER Calcium/Magnesium 250mg 1 tab PO AC-SUPPER Discharge Medication List Aspirin EC [Ecotrin Low Dose] 81 mg PO AC-SUPPER 06/11/23 [History] Biotin 5 mg PO AC-SUPPER 06/11/23 [History] Calcium/Magnesium 250mg 1 tab PO AC-SUPPER 06/11/23 [History] Cholecalciferol [Vitamin D3 (10 Mcg = 400 Iu)] 10 mcg PO AC-SUPPER 06/11/23 [History] Famotidine/Ca Carb/Mag Hydrox [Pepcid Complete Tablet Chew] 1 tab PO AC-SUPPER 06/11/23 [History] Losartan [Cozaar] 12.5 mg PO DAILY 06/11/23 [History] cefUROXime axetiL [Ceftin] 500 mg PO BID 7 Days #14 tab 06/14/23 [Rx] predniSONE 10 mg PO DIRECTED 12 Days #30 tab 06/14/23 [Rx] Follow up Appointment(s)/Referral(s): Melita Wyatt MD [Primary Care Provider] - 1-2 days Kong Ballesteros MD [STAFF PHYSICIAN] - 1 Week Activity/Diet/Wound Care/Special Instructions: Activities as tolerated Diet heart healthy Discharge Disposition: HOME SELF-CARE
[2023-06-14] MEDS: IPRATROPIUM-ALBUTEROL 3 ML NEB INHALATION PRN (11:28)
[2023-06-14 11:41] VITALS: PULSE 80
== END 2023-06-14 12:23 | disposition home or self-care (01) | DRG 191 ==
LOC: EC 07:36 → 4SSUR 12:15
PROVIDERS: ADMIT Internal Medicine; ATTEND Internal Medicine
DX: J47.0 Bronchiectasis with acute lower respiratory infection (principal); Z68.1 Body mass index [BMI] 19.9 or less, adult; J18.9 Pneumonia, unspecified organism; I10 Essential (primary) hypertension; Z11.52 Encounter for screening for COVID-19; R53.1 Weakness; I34.1 Nonrheumatic mitral (valve) prolapse; R82.71 Bacteriuria; K21.9 Gastro-esophageal reflux disease without esophagitis; R63.6 Underweight; E86.0 Dehydration; F17.200 Nicotine dependence, unspecified, uncomplicated; K21.00 Gastro-esophageal reflux disease with esophagitis, without bleeding; Z79.82 Long term (current) use of aspirin; Z87.01 Personal history of pneumonia (recurrent); Z82.49 Family history of ischemic heart disease and other diseases of the circulatory system; Z87.19 Personal history of other diseases of the digestive system; Z88.0 Allergy status to penicillin
CPT/HCPCS: 36415; 71045; 71046; 80053; 81001; 83605; 83735; 83880; 84145; 84484; 85025; 85610; 85730; 87040; 87636; 93005; 94640; 94760; 96365; 96366; 96367; 99285